=== PATIENT | male | born 1955 | race African-American/Black ===

== ENCOUNTER → 2018-11-01 | Day surgery (SDC) | payer MEDICARE, MEDICAID ==
[2018-10-28 10:59] LABS: Urine WBC None Seen /hpf (0 - 3)
[2018-10-28 11:41] LABS: Eosinophils # (auto) 0.1 uL; Hemoglobin 17.9 g/dL (13.5-17.5); Neutrophils # (auto) 2.1 uL; Platelet Count (auto) 197 10^3/uL (140-450); White Blood Cell 4.7 10^3/uL (4.4-10.8)
[2018-10-28 11:45] LABS: Basophils # (auto) 0.1 uL; Basophils % (auto) 1.8 % (0.0-2.0); Hematocrit 51.8 % (41.0-53.0); Lymphocytes # (auto) 1.9 uL; Lymphocytes % (auto) 39.7 % (10.0-50.0); Mean Corpuscular Hgb Conc. 34.6 g/dL (32.0-36.0); Mean Corpuscular Volume 104.2 fL (80.0-100.0); Monocytes # (auto) 0.6 uL; Neutrophils % (auto) 43.5 % (37.0-80.0); Nucleated Red Blood Cells % 0.1 %; Red Blood Cells 4.97 10^6/uL (4.5-5.90); Red Cell Distribution Width 13.5 % (11.8-14.3)
[2018-10-28 11:48] LABS: Urine Bacteria NONE SEEN /hpf (None Seen); Urine Blood Negative /uL (Negative); Urine Mucus FEW (None Seen); Urine Specific Gravity 1.026 (1.001-1.035); Urine Sperm PRESENT /hpf (None Seen)
[2018-10-28 11:52] LABS: Partial Thromboplastin Time 25.4 sec (23.78-33.04); Prothrombin Time 10.7 sec (9.27-12.13)
[2018-10-28 12:11] LABS: Albumin 3.7 g/dL (3.4-5.0); Calcium 9.1 mg/dL (8.5-10.1); Potassium 4.3 mmol/L (3.5-5.1)
[2018-10-28 12:14] LABS: BUN/Creatinine Ratio 10.4; Bilirubin, Total 0.7 mg/dL (0.2-1.0); Total Protein 9.1 g/dL (6.4-8.2)
[~2018-11-01] VITALS: Ht 180.3 cm; Wt 78.5 kg
[~2018-11-01] MED LIST: AML5T PO; ELVI1TAB4 PO; ESOM20CA PO; FAM20T PO; GLIP5TAB77 PO; LIDOCAINE 1% (LOCAL ANESTH.) PF 5ml SDV ONE; LIDOCAINE 1% HCL (LOCAL ANESTH.) INJ 20ML MDV ONE; METF500T PO; MIDAZOLAM HCL 1MG/1ML-2 ML VIAL ONE; ONDANSETRON HCL 4 MG/2 ML VIAL IV ONE; PROPOFOL 10 MG/ML 20 ML IV ONE; ceFAZolin 1GM/50ML 50 ML IV ONE; ePHEDrine SULFATE 50 MG/ML AMP IV PRN; fentaNYL CITRATE 100 MCG/2 ML VL IV ONE; fentaNYL CITRATE 100 MCG/2 ML VL ONE; hydrALAZINE HCL 20 MG/ML VL IV PRN
[2018-11-01 08:56] VITALS: BP 135/83
== END | disposition home or self-care (01) ==
LOC: SUR 05:54
PROVIDERS: ATTEND Orthopaedic Surgery
DX: S83.241A Other tear of medial meniscus, current injury, right knee, initial encounter (principal); M67.51 Plica syndrome, right knee; X58.XXXA Exposure to other specified factors, initial encounter; Y93.89 Activity, other specified; Y92.89 Other specified places as the place of occurrence of the external cause; Y99.8 Other external cause status; I10 Essential (primary) hypertension; K21.9 Gastro-esophageal reflux disease without esophagitis; E11.9 Type 2 diabetes mellitus without complications; B20 Human immunodeficiency virus [HIV] disease; Z79.84 Long term (current) use of oral hypoglycemic drugs; Z88.5 Allergy status to narcotic agent; Z79.899 Other long term (current) drug therapy; Z93.3 Colostomy status; Z98.49 Cataract extraction status, unspecified eye; Z98.890 Other specified postprocedural states; Z87.891 Personal history of nicotine dependence
CPT/HCPCS: 29876; 29881; 36415; 80053; 81001; 82962; 85025; 85610; 85730; J0690; J2001; J2250; J2704; J3010; A6257

== ENCOUNTER 2020-06-29 11:31 | Inpatient (IN) | payer MEDICARE, MEDICAID ==
[~2020-06-29] VITALS: Ht 180.3 cm; Wt 83.6 kg
[~2020-06-29 11:31] MED LIST changes: -ELVI1TAB4 PO; +ELVI1TAB5 PO; -FAM20T PO; +FAMO20TA10 PO; -LIDOCAINE 1% (LOCAL ANESTH.) PF 5ml SDV ONE; -LIDOCAINE 1% HCL (LOCAL ANESTH.) INJ 20ML MDV ONE; -MIDAZOLAM HCL 1MG/1ML-2 ML VIAL ONE; -ONDANSETRON HCL 4 MG/2 ML VIAL IV ONE; -PROPOFOL 10 MG/ML 20 ML IV ONE; -ceFAZolin 1GM/50ML 50 ML IV ONE; -ePHEDrine SULFATE 50 MG/ML AMP IV PRN; -fentaNYL CITRATE 100 MCG/2 ML VL IV ONE; -fentaNYL CITRATE 100 MCG/2 ML VL ONE; -hydrALAZINE HCL 20 MG/ML VL IV PRN
[2020-06-29 12:41] LABS: Basophils # (auto) 0 10 ^3/uL (0-0.2); Basophils % (auto) 0.2 % (0.0-2.0); Eosinophils # (auto) 0 10 ^3/uL (0-0.8); Hematocrit 42.2 % (41.0-53.0); Lymphocytes # (auto) 0.6 10 ^3/uL (0.4-5.4); Lymphocytes % (auto) 5.4 % (10.0-50.0); Mean Corpuscular Hemoglobin 37.5 pg (28.0-32.0); Mean Corpuscular Hgb Conc. 35.5 g/dL (32.0-36.0); Mean Corpuscular Volume 105.4 fL (80.0-100.0); Monocytes # (auto) 0.9 10 ^3/uL (0-1.3); Monocytes % (auto) 8.4 % (0.0-12.0); Neutrophils # (auto) 8.8 10 ^3/uL (1.6-8.6); Nucleated Red Blood Cells % 0.1 %; Red Cell Distribution Width 12.5 % (11.8-14.3); White Blood Cell 10.2 10^3/uL (4.4-10.8)
[2020-06-29] MEDS ORDERED: DexAMETHasone SOD PHOS 10MG/1ML VIAL INJ IV ONE (12:45)
[2020-06-29] MEDS ORDERED: AZITHROMYCIN 500MG/ 250ML 250 ML IV ONE (12:45)
[2020-06-29 13:09] LABS: Chloride 92 mmol/L (98-107); Potassium 3.8 mmol/L (3.5-5.1); Sodium 127 mmol/L (136-145)
[2020-06-29 13:14] LABS: Lactic Acid w/Reflex 4.7 mmol/L (0.4-2.0)
[2020-06-29 13:19] LABS: Alanine Aminotransferase 105 U/L (16-61); Albumin 2.7 g/dL (3.4-5.0); Alkaline Phosphatase 192 U/L (45-117); Anion Gap 17 (5-15); Aspartate Aminotransferase 225 U/L (15-37); BUN/Creatinine Ratio 10.2; Bilirubin, Total 2.5 mg/dL (0.2-1.0); Blood Urea Nitrogen 14 mg/dL (7-18); Calcium 9.1 mg/dL (8.5-10.1); Carbon Dioxide 18 mmol/L (21-32); GFR African American 67 mL/min; GFR Non-African American 55 mL/min; Glucose 347 mg/dL (74-106)
[2020-06-29 13:48] LABS: INR 1.13 (0.9-1.15)
[2020-06-29] MEDS ORDERED: DEXTROSE (50%) 50ML SYRG IV PRN ×2 (16:00→18:00)
[2020-06-29] MEDS ORDERED: InsuLIN R (HUMAN) 100 UNITS in SODIUM CHL 0.9% 99 ML IV SCH (16:00)
[2020-06-29] MEDS ORDERED: ACCU-CHEK COMFORT CURVE STRIP VI SCH ×2 (16:30→22:00)
[2020-06-29] MEDS: SODIUM CHLORIDE 0.9% 1,000 ML IV SCH ×3 (16:38→21:55)
[2020-06-29] MEDS ORDERED: NITROGLYCERIN 0.4 MG SL TAB SL PRN (17:15)
[2020-06-29] MEDS ORDERED: MORPHINE SULFATE INJECTION 2 MG/ML SYRG IV PRN ×3 (17:15→18:00)
[2020-06-29] MEDS: MAGNESIUM SULFATE 1GM/100ML 100 ML IV SCH ×3 (17:46→18:32)
[2020-06-29] MEDS ORDERED: levoFLOXacin 500MG 100 ML IV ONE (18:00)
[2020-06-29] MEDS ORDERED: PROMETHAZINE HCL 25 MG/ML 1ML IV PRN (18:00)
[2020-06-29] MEDS ORDERED: TEMAZEPAM 15 MG CAP PO PRN (18:00)
[2020-06-29] MEDS ORDERED: PANTOPRAZOLE 40 MG/10 ML VIAL INJ IV ONE (18:00)
[2020-06-29] MEDS ORDERED: REMDESIVIR PER PHARMACY 0 ML IV SCH (18:15)
[2020-06-29 19:22] LABS: Hemoglobin 14.2 g/dL (13.5-17.5)
[2020-06-29 19:24] LABS: Hematocrit 40.5 % (41.0-53.0)
[2020-06-29 19:25] LABS: Amylase 130 U/L (25-115); Lipase 188 U/L (73-393)
[2020-06-29 19:39] LABS: CRP High Sensitivity > 19.0 mg/dL (< 0.3)
[2020-06-29 19:43] LABS: Calcium 9.1 mg/dL (8.5-10.1); Potassium 3.9 mmol/L (3.5-5.1)
[2020-06-29 19:45] LABS: BUN/Creatinine Ratio 13.5
[2020-06-29] MEDS ORDERED: SODIUM CHLORIDE 0.9% 1,000 ML IV SCH ×2 (20:00→22:00)
[2020-06-29] MEDS: INSULIN LANTUS (GLARGINE) 1 /0.01ml (100units/ml) SC SCH (20:39)
[2020-06-29] MEDS: ACCU-CHEK COMFORT CURVE STRIP VI SCH ×2 (20:39→23:53)
[2020-06-29] MEDS: InsuLIN REG 1unit/0.01ml Soln (100units/ml) SC SCH ×2 (20:40→23:53)
[2020-06-29] MEDS ORDERED: InsuLIN REG 1unit/0.01ml Soln (100units/ml) SC SCH (22:00)
[2020-06-29] MEDS: metroNIDAZOLE 500MG/100ML 100 ML IV SCH (22:00)
[2020-06-29] MEDS: BUDESONIDE (INHALATION) 180 MCG IH IN SCH (22:40)
[2020-06-29] MEDS: ALBUTEROL SULF HFA 90MCG INH 200DOSE IN PRN (22:41)
[2020-06-29 23:06] LABS: BUN/Creatinine Ratio 15.2; Calcium 8.7 mg/dL (8.5-10.1)
[2020-06-30] MEDS: SODIUM CHLORIDE 0.9% 1,000 ML IV SCH ×3 (02:10→18:06)
[2020-06-30 03:59] LABS: Hematocrit 36.9 % (41.0-53.0); Hemoglobin 12.8 g/dL (13.5-17.5)
[2020-06-30] MEDS: ACCU-CHEK COMFORT CURVE STRIP VI SCH ×5 (04:13→20:17)
[2020-06-30] MEDS: InsuLIN REG 1unit/0.01ml Soln (100units/ml) SC SCH ×5 (04:13→20:24)
[2020-06-30] MEDS: metroNIDAZOLE 500MG/100ML 100 ML IV SCH ×3 (05:33→23:06)
[2020-06-30 06:27] LABS: Basophils # (auto) 0 10 ^3/uL (0-0.2); Eosinophils # (auto) 0 10 ^3/uL (0-0.8); Lymphocytes # (auto) 0.8 10 ^3/uL (0.4-5.4); Monocytes # (auto) 0.8 10 ^3/uL (0-1.3); Neutrophils # (auto) 9.5 10 ^3/uL (1.6-8.6); Red Cell Distribution Width 12.3 % (11.8-14.3); White Blood Cell 11.1 10^3/uL (4.4-10.8)
[2020-06-30 06:29] LABS: Basophils % (auto) 0.1 % (0.0-2.0); Hematocrit 35.8 % (41.0-53.0); Hemoglobin 12.5 g/dL (13.5-17.5); Lymphocytes % (auto) 7.1 % (10.0-50.0); Mean Corpuscular Hemoglobin 36.8 pg (28.0-32.0); Mean Corpuscular Volume 105.1 fL (80.0-100.0); Monocytes % (auto) 7.5 % (0.0-12.0); Neutrophils % (auto) 85.3 % (37.0-80.0); Red Blood Cells 3.41 10^6/uL (4.5-5.90)
[2020-06-30 06:39] LABS: Albumin 2.1 g/dL (3.4-5.0); BUN/Creatinine Ratio 19.2; Calcium 8.4 mg/dL (8.5-10.1); Potassium 3.9 mmol/L (3.5-5.1)
[2020-06-30 06:41] LABS: Bilirubin, Total 1.2 mg/dL (0.2-1.0); Total Protein 7.3 g/dL (6.4-8.2)
[2020-06-30] MEDS: BUDESONIDE (INHALATION) 180 MCG IH IN SCH ×2 (09:27→19:35)
[2020-06-30] MEDS: ALBUTEROL SULF HFA 90MCG INH 200DOSE IN PRN ×2 (09:27→21:16)
[2020-06-30] MEDS ORDERED: VANCOMYCIN PER PHARMACY 0 MG IV SCH (11:15)
[2020-06-30] MEDS: INSULIN LANTUS (GLARGINE) 1 /0.01ml (100units/ml) SC SCH ×2 (12:00→23:41)
[2020-06-30] MEDS: CHOLECALCIFEROL (VITD3) 2,000 UNIT CAP/TAB PO SCH (12:00)
[2020-06-30] MEDS: DexAMETHasone SOD PHOS 10MG/1ML VIAL INJ IV SCH (12:00)
[2020-06-30] MEDS: levoFLOXacin 500MG 100 ML IV SCH (12:00)
[2020-06-30] MEDS: ZINC SULFATE 220mg CAP or TAB PO SCH (12:00)
[2020-06-30] MEDS: ASCORBIC ACID 1,000 MG TAB PO SCH (12:00)
[2020-06-30] MEDS: PANTOPRAZOLE 40 MG TAB PO SCH ×2 (12:00→23:06)
[2020-06-30] MEDS ORDERED: REMDESIVIR 200 MG in NS 210ml LOADING DOSE ADULT IV ONE (15:00)
[2020-06-30] MEDS: VANCOMYCIN 1GM/250ML 250 ML IV SCH (16:35)
[2020-06-30] MEDS: SUCRALFATE 1 GM/10 ML ORAL SUSP PO SCH ×2 (18:07→23:06)
[2020-07-01] MEDS: ACCU-CHEK COMFORT CURVE STRIP VI SCH ×6 (00:40→20:03)
[2020-07-01] MEDS: InsuLIN REG 1unit/0.01ml Soln (100units/ml) SC SCH ×6 (00:44→20:07)
[2020-07-01] MEDS: VANCOMYCIN 1GM/250ML 250 ML IV SCH ×2 (01:02→12:12)
[2020-07-01] MEDS: SODIUM CHLORIDE 0.9% 1,000 ML IV SCH ×2 (02:00→08:05)
[2020-07-01] MEDS: metroNIDAZOLE 500MG/100ML 100 ML IV SCH ×3 (06:06→21:23)
[2020-07-01 06:54] LABS: Urine Bacteria FEW /hpf (None Seen); Urine Blood Negative /uL (Negative); Urine Hyaline Cast FEW /lpf (0 - 2); Urine Mucus FEW (None Seen); Urine Specific Gravity 1.017 (1.001-1.035); Urine WBC 10 /hpf (0 - 3)
[2020-07-01] MEDS: SUCRALFATE 1 GM/10 ML ORAL SUSP PO SCH ×4 (07:00→21:02)
[2020-07-01 07:15] LABS: Basophils # (auto) 0 10 ^3/uL (0-0.2); Eosinophils # (auto) 0 10 ^3/uL (0-0.8); Hematocrit 37.8 % (41.0-53.0); Monocytes # (auto) 0.5 10 ^3/uL (0-1.3); Neutrophils % (auto) 89.4 % (37.0-80.0); Nucleated Red Blood Cells % 0.1 %; Red Cell Distribution Width 12.4 % (11.8-14.3)
[2020-07-01 07:19] LABS: Basophils % (auto) 0.1 % (0.0-2.0); Hemoglobin 13.3 g/dL (13.5-17.5); Lymphocytes # (auto) 0.4 10 ^3/uL (0.4-5.4); Mean Corpuscular Hemoglobin 36.6 pg (28.0-32.0); Mean Corpuscular Hgb Conc. 35.2 g/dL (32.0-36.0); Monocytes % (auto) 5.5 % (0.0-12.0); Neutrophils # (auto) 7.9 10 ^3/uL (1.6-8.6); Red Blood Cells 3.64 10^6/uL (4.5-5.90); White Blood Cell 8.9 10^3/uL (4.4-10.8)
[2020-07-01 07:40] LABS: Potassium 3.1 mmol/L (3.5-5.1)
[2020-07-01 07:50] LABS: BUN/Creatinine Ratio 14.6; Calcium 8.8 mg/dL (8.5-10.1)
[2020-07-01 07:53] LABS: Bilirubin, Total 1.3 mg/dL (0.2-1.0); Total Protein 7.2 g/dL (6.4-8.2)
[2020-07-01] MEDS: ASCORBIC ACID 1,000 MG TAB PO SCH (08:05)
[2020-07-01] MEDS: ZINC SULFATE 220mg CAP or TAB PO SCH (08:05)
[2020-07-01] MEDS: levoFLOXacin 500MG 100 ML IV SCH (08:05)
[2020-07-01] MEDS: PANTOPRAZOLE 40 MG TAB PO SCH ×2 (08:05→21:02)
[2020-07-01] MEDS: DexAMETHasone SOD PHOS 10MG/1ML VIAL INJ IV SCH (08:05)
[2020-07-01] MEDS: CHOLECALCIFEROL (VITD3) 2,000 UNIT CAP/TAB PO SCH (08:06)
[2020-07-01] MEDS: INSULIN LANTUS (GLARGINE) 1 /0.01ml (100units/ml) SC SCH ×2 (10:00→21:03)
[2020-07-01] MEDS ORDERED: POTASSIUM CHL 20MEQ/100ML 100 ML IV ONE (13:30)
[2020-07-01 18:55] VITALS: BP 104/69
[2020-07-01] MEDS: HYDROcodone-ACET 10/325MG TAB PO PRN (20:56)
[2020-07-01] MEDS: REMDESIVIR 100 MG in SODIUM CHL 0.9% 250 ML IV SCH (21:22)
[2020-07-01 23:27] VITALS: BP 107/71
[2020-07-02] MEDS: VANCOMYCIN 1GM/250ML 250 ML IV SCH ×2 (00:40→13:22)
[2020-07-02 02:35] VITALS: BP 113/70
[2020-07-02] MEDS: metroNIDAZOLE 500MG/100ML 100 ML IV SCH ×3 (05:15→22:03)
[2020-07-02] MEDS: ACCU-CHEK COMFORT CURVE STRIP VI SCH ×4 (05:15→17:58)
[2020-07-02] MEDS: SUCRALFATE 1 GM/10 ML ORAL SUSP PO SCH ×4 (05:35→22:03)
[2020-07-02] MEDS: InsuLIN REG 1unit/0.01ml Soln (100units/ml) SC SCH ×4 (05:48→18:07)
[2020-07-02 06:33] LABS: Basophils # (auto) 0 10 ^3/uL (0-0.2); Basophils % (auto) 0.2 % (0.0-2.0); Eosinophils # (auto) 0 10 ^3/uL (0-0.8); Lymphocytes # (auto) 0.4 10 ^3/uL (0.4-5.4); Nucleated Red Blood Cells % 0.1 %; Red Blood Cells 3.42 10^6/uL (4.5-5.90); Red Cell Distribution Width 12.3 % (11.8-14.3)
[2020-07-02 06:36] LABS: Hemoglobin 12.6 g/dL (13.5-17.5); Lymphocytes % (auto) 4.7 % (10.0-50.0); Mean Corpuscular Hemoglobin 36.9 pg (28.0-32.0); Mean Corpuscular Hgb Conc. 35.1 g/dL (32.0-36.0); Monocytes # (auto) 0.5 10 ^3/uL (0-1.3); Monocytes % (auto) 6.9 % (0.0-12.0); Neutrophils % (auto) 88.2 % (37.0-80.0)
[2020-07-02 07:07] LABS: Calcium 8.5 mg/dL (8.5-10.1); Potassium 3.2 mmol/L (3.5-5.1)
[2020-07-02 07:13] LABS: Albumin 1.8 g/dL (3.4-5.0); BUN/Creatinine Ratio 20.5; Total Protein 6.8 g/dL (6.4-8.2)
[2020-07-02] MEDS: BUDESONIDE (INHALATION) 180 MCG IH IN SCH ×4 (07:24→18:22)
[2020-07-02 08:00] VITALS: BP 109/66
[2020-07-02] MEDS: ALBUTEROL SULF HFA 90MCG INH 200DOSE IN PRN ×2 (08:00→18:23)
[2020-07-02] MEDS: ASCORBIC ACID 1,000 MG TAB PO SCH (10:00)
[2020-07-02] MEDS: INSULIN LANTUS (GLARGINE) 1 /0.01ml (100units/ml) SC SCH ×2 (10:00→22:22)
[2020-07-02] MEDS: levoFLOXacin 500MG 100 ML IV SCH (10:00)
[2020-07-02] MEDS: PANTOPRAZOLE 40 MG TAB PO SCH ×2 (10:00→22:00)
[2020-07-02] MEDS: ZINC SULFATE 220mg CAP or TAB PO SCH (10:00)
[2020-07-02] MEDS: CHOLECALCIFEROL (VITD3) 2,000 UNIT CAP/TAB PO SCH (10:00)
[2020-07-02] MEDS: DexAMETHasone SOD PHOS 10MG/1ML VIAL INJ IV SCH (10:00)
[2020-07-02] MEDS: HYDROcodone-ACET 10/325MG TAB PO PRN ×2 (12:30→20:00)
[2020-07-02] MEDS ORDERED: POTASSIUM EFFERVESENT TAB 25 MEQ PO ONE (13:00)
[2020-07-02 15:40] VITALS: BP 131/74
[2020-07-02] MEDS: REMDESIVIR 100 MG in SODIUM CHL 0.9% 250 ML IV SCH (17:57)
[2020-07-02 18:14] VITALS: BP 132/77
[2020-07-03] VITALS: BP 105/64
[2020-07-03] MEDS: InsuLIN REG 1unit/0.01ml Soln (100units/ml) SC SCH ×4 (00:42→17:44)
[2020-07-03] MEDS: VANCOMYCIN 1GM/250ML 250 ML IV SCH ×2 (00:46→14:44)
[2020-07-03] MEDS: metroNIDAZOLE 500MG/100ML 100 ML IV SCH (05:58)
[2020-07-03] MEDS: ACCU-CHEK COMFORT CURVE STRIP VI SCH ×4 (05:58→17:43)
[2020-07-03] MEDS: SUCRALFATE 1 GM/10 ML ORAL SUSP PO SCH ×4 (06:03→22:34)
[2020-07-03] MEDS: BUDESONIDE (INHALATION) 180 MCG IH IN SCH ×2 (07:20→20:48)
[2020-07-03] MEDS: ALBUTEROL SULF HFA 90MCG INH 200DOSE IN PRN ×2 (07:20→20:49)
[2020-07-03 07:26] LABS: Basophils # (auto) 0 10 ^3/uL (0-0.2); Eosinophils # (auto) 0 10 ^3/uL (0-0.8); Lymphocytes # (auto) 0.4 10 ^3/uL (0.4-5.4); Mean Corpuscular Hgb Conc. 35.2 g/dL (32.0-36.0); Monocytes # (auto) 0.6 10 ^3/uL (0-1.3)
[2020-07-03 07:28] LABS: Basophils % (auto) 0.1 % (0.0-2.0); Eosinophils % (auto) 0.1 % (0.0-7.0); Hematocrit 35.6 % (41.0-53.0); Hemoglobin 12.5 g/dL (13.5-17.5); Lymphocytes % (auto) 4.9 % (10.0-50.0); Mean Corpuscular Hemoglobin 36.4 pg (28.0-32.0); Mean Corpuscular Volume 103.4 fL (80.0-100.0); Monocytes % (auto) 8.2 % (0.0-12.0); Neutrophils # (auto) 6.3 10 ^3/uL (1.6-8.6); Neutrophils % (auto) 86.7 % (37.0-80.0); Nucleated Red Blood Cells % 0.1 %; Red Blood Cells 3.44 10^6/uL (4.5-5.90); Red Cell Distribution Width 12.5 % (11.8-14.3); White Blood Cell 7.2 10^3/uL (4.4-10.8)
[2020-07-03 08:00] VITALS: BP 96/64
[2020-07-03 08:12] LABS: Albumin 1.8 g/dL (3.4-5.0); BUN/Creatinine Ratio 17.9; Calcium 8.2 mg/dL (8.5-10.1); Total Protein 6.8 g/dL (6.4-8.2)
[2020-07-03 08:18] LABS: Potassium 2.8 mmol/L (3.5-5.1)
[2020-07-03] MEDS ORDERED: POTASSIUM EFFERVESENT TAB 25 MEQ PO ONE ×2 (08:45→22:00)
[2020-07-03] MEDS: ELVITEGRAVIR COBICISTAT EMTRIC PO SCH (10:00)
[2020-07-03] MEDS: DexAMETHasone SOD PHOS 10MG/1ML VIAL INJ IV SCH (10:17)
[2020-07-03] MEDS: PANTOPRAZOLE 40 MG TAB PO SCH ×2 (10:18→22:35)
[2020-07-03] MEDS: ZINC SULFATE 220mg CAP or TAB PO SCH (10:18)
[2020-07-03] MEDS: levoFLOXacin 500MG 100 ML IV SCH (10:18)
[2020-07-03] MEDS: ASCORBIC ACID 1,000 MG TAB PO SCH (10:19)
[2020-07-03] MEDS: CHOLECALCIFEROL (VITD3) 2,000 UNIT CAP/TAB PO SCH (10:19)
[2020-07-03] MEDS: INSULIN LANTUS (GLARGINE) 1 /0.01ml (100units/ml) SC SCH ×2 (10:32→22:38)
[2020-07-03 16:00] VITALS: BP 104/72
[2020-07-03] MEDS: REMDESIVIR 100 MG in SODIUM CHL 0.9% 250 ML IV SCH (16:00)
[2020-07-03] MEDS: DOXYCYCLINE 100 MG TAB/CAP PO SCH (22:35)
[2020-07-04] VITALS: BP 98/50
[2020-07-04] MEDS: InsuLIN REG 1unit/0.01ml Soln (100units/ml) SC SCH ×4 (00:36→17:46)
[2020-07-04] MEDS: ALBUTEROL SULF HFA 90MCG INH 200DOSE IN PRN ×2 (06:24→20:57)
[2020-07-04] MEDS: BUDESONIDE (INHALATION) 180 MCG IH IN SCH ×2 (06:24→20:57)
[2020-07-04] MEDS: ACCU-CHEK COMFORT CURVE STRIP VI SCH ×4 (06:26→17:45)
[2020-07-04] MEDS: SUCRALFATE 1 GM/10 ML ORAL SUSP PO SCH ×4 (06:26→21:44)
[2020-07-04 08:00] VITALS: BP 108/65
[2020-07-04 08:09] LABS: Albumin 1.9 g/dL (3.4-5.0); BUN/Creatinine Ratio 20.3; Bilirubin, Total 1.1 mg/dL (0.2-1.0); Calcium 8.6 mg/dL (8.5-10.1)
[2020-07-04 08:29] LABS: Basophils # (auto) 0 10 ^3/uL (0-0.2); Basophils % (auto) 0.1 % (0.0-2.0); Eosinophils # (auto) 0 10 ^3/uL (0-0.8); Hematocrit 37.8 % (41.0-53.0); Hemoglobin 13.3 g/dL (13.5-17.5); Lymphocytes # (auto) 0.5 10 ^3/uL (0.4-5.4); Lymphocytes % (auto) 6.3 % (10.0-50.0); Mean Corpuscular Hemoglobin 36.2 pg (28.0-32.0); Mean Corpuscular Hgb Conc. 35.1 g/dL (32.0-36.0); Mean Corpuscular Volume 103.2 fL (80.0-100.0); Monocytes # (auto) 0.9 10 ^3/uL (0-1.3); Monocytes % (auto) 12.3 % (0.0-12.0); Neutrophils # (auto) 6.1 10 ^3/uL (1.6-8.6); Neutrophils % (auto) 81.3 % (37.0-80.0); Nucleated Red Blood Cells % 0.4 %; Red Blood Cells 3.67 10^6/uL (4.5-5.90); Red Cell Distribution Width 12.7 % (11.8-14.3); White Blood Cell 7.4 10^3/uL (4.4-10.8)
[2020-07-04] MEDS: CHOLECALCIFEROL (VITD3) 2,000 UNIT CAP/TAB PO SCH (09:52)
[2020-07-04] MEDS: ZINC SULFATE 220mg CAP or TAB PO SCH (09:52)
[2020-07-04] MEDS: DOXYCYCLINE 100 MG TAB/CAP PO SCH ×3 (09:52→23:12)
[2020-07-04] MEDS: ASCORBIC ACID 1,000 MG TAB PO SCH (09:52)
[2020-07-04] MEDS: DexAMETHasone SOD PHOS 10MG/1ML VIAL INJ IV SCH (09:52)
[2020-07-04] MEDS: PANTOPRAZOLE 40 MG TAB PO SCH ×2 (09:52→21:45)
[2020-07-04] MEDS: cefTRIAXone 1GM/50ML D5W 50 ML IV SCH (09:52)
[2020-07-04] MEDS: ELVITEGRAVIR COBICISTAT EMTRIC PO SCH (10:00)
[2020-07-04] MEDS: INSULIN LANTUS (GLARGINE) 1 /0.01ml (100units/ml) SC SCH ×2 (10:51→21:52)
[2020-07-04 16:00] VITALS: BP 106/58
[2020-07-04] MEDS: REMDESIVIR 100 MG in SODIUM CHL 0.9% 250 ML IV SCH (16:22)
[2020-07-04] MEDS ORDERED: POTASSIUM EFFERVESENT TAB 25 MEQ PO ONE (20:30)
[2020-07-04] MEDS ORDERED: POTASSIUM CHL 20 Meq TABLET PO ONE (20:30)
[2020-07-04] MEDS ORDERED: FUROSEMIDE 40 MG/4 ML VIAL IV ONE (20:30)
[2020-07-04] MEDS ORDERED: ENOXAPARIN SOD 40 MG/0.4 ML SYRINGE SC ONE (20:30)
[2020-07-04] MEDS: HYDROcodone-ACET 10/325MG TAB PO PRN (21:45)
[2020-07-04] MEDS: metroNIDAZOLE 500MG/100ML 100 ML IV SCH (23:12)
[2020-07-05] VITALS: BP 110/72
[2020-07-05] MEDS: ACCU-CHEK COMFORT CURVE STRIP VI SCH ×5 (00:16→23:41)
[2020-07-05] MEDS: metroNIDAZOLE 500MG/100ML 100 ML IV SCH ×3 (05:50→21:38)
[2020-07-05] MEDS: InsuLIN REG 1unit/0.01ml Soln (100units/ml) SC SCH ×5 (06:00→23:47)
[2020-07-05] MEDS: SUCRALFATE 1 GM/10 ML ORAL SUSP PO SCH ×4 (06:48→21:38)
[2020-07-05] MEDS: BUDESONIDE (INHALATION) 180 MCG IH IN SCH ×2 (07:00→19:57)
[2020-07-05] MEDS: ALBUTEROL SULF HFA 90MCG INH 200DOSE IN PRN ×2 (07:00→19:57)
[2020-07-05 08:00] VITALS: BP 104/74
[2020-07-05] MEDS: POTASSIUM EFFERVESENT TAB 25 MEQ PO SCH (08:38)
[2020-07-05] MEDS: PANTOPRAZOLE 40 MG TAB PO SCH ×2 (08:39→21:39)
[2020-07-05] MEDS: DexAMETHasone SOD PHOS 10MG/1ML VIAL INJ IV SCH (08:39)
[2020-07-05] MEDS: DOXYCYCLINE 100 MG TAB/CAP PO SCH ×2 (08:39→21:39)
[2020-07-05] MEDS: ZINC SULFATE 220mg CAP or TAB PO SCH (08:39)
[2020-07-05] MEDS: CHOLECALCIFEROL (VITD3) 2,000 UNIT CAP/TAB PO SCH (08:39)
[2020-07-05] MEDS: ASCORBIC ACID 1,000 MG TAB PO SCH (08:39)
[2020-07-05] MEDS: cefTRIAXone 1GM/50ML D5W 50 ML IV SCH (08:40)
[2020-07-05] MEDS: ENOXAPARIN SOD 40 MG/0.4 ML SYRINGE SC SCH (08:40)
[2020-07-05] MEDS: ELVITEGRAVIR COBICISTAT EMTRIC PO SCH (08:41)
[2020-07-05 10:48] LABS: Basophils # (auto) 0 10 ^3/uL (0-0.2); Basophils % (auto) 0.1 % (0.0-2.0); Eosinophils # (auto) 0 10 ^3/uL (0-0.8); Eosinophils % (auto) 0.4 % (0.0-7.0); Monocytes # (auto) 0.5 10 ^3/uL (0-1.3)
[2020-07-05 10:50] LABS: Hematocrit 38.4 % (41.0-53.0); Hemoglobin 13.4 g/dL (13.5-17.5); Lymphocytes # (auto) 0.3 10 ^3/uL (0.4-5.4); Lymphocytes % (auto) 4.2 % (10.0-50.0); Mean Corpuscular Hemoglobin 36.3 pg (28.0-32.0); Mean Corpuscular Hgb Conc. 34.8 g/dL (32.0-36.0); Mean Corpuscular Volume 104.4 fL (80.0-100.0); Monocytes % (auto) 7.7 % (0.0-12.0); Neutrophils # (auto) 5.8 10 ^3/uL (1.6-8.6); Neutrophils % (auto) 87.6 % (37.0-80.0); Red Blood Cells 3.68 10^6/uL (4.5-5.90); Red Cell Distribution Width 12.8 % (11.8-14.3); White Blood Cell 6.6 10^3/uL (4.4-10.8)
[2020-07-05 10:53] LABS: Nucleated Red Blood Cells % 0.3 %
[2020-07-05] MEDS ORDERED: LOPERAMIDE 1 mg/7.5ml ORAL soln PO ONE (11:15)
[2020-07-05] MEDS: INSULIN LANTUS (GLARGINE) 1 /0.01ml (100units/ml) SC SCH ×2 (13:05→21:41)
[2020-07-05] MEDS: FUROSEMIDE 40 MG/4 ML VIAL IV SCH (13:08)
[2020-07-05 16:00] VITALS: BP 96/60
[2020-07-06] VITALS: BP 99/63
[2020-07-06] MEDS: metroNIDAZOLE 500MG/100ML 100 ML IV SCH ×3 (05:53→22:04)
[2020-07-06] MEDS: InsuLIN REG 1unit/0.01ml Soln (100units/ml) SC SCH ×4 (06:00→23:14)
[2020-07-06] MEDS: ACCU-CHEK COMFORT CURVE STRIP VI SCH ×4 (06:07→22:55)
[2020-07-06] MEDS: SUCRALFATE 1 GM/10 ML ORAL SUSP PO SCH ×4 (06:29→22:04)
[2020-07-06 07:50] LABS: Basophils # (auto) 0 10 ^3/uL (0-0.2); Eosinophils # (auto) 0 10 ^3/uL (0-0.8); Hemoglobin 12.6 g/dL (13.5-17.5); Lymphocytes # (auto) 0.5 10 ^3/uL (0.4-5.4); Monocytes # (auto) 0.6 10 ^3/uL (0-1.3); Neutrophils # (auto) 5.2 10 ^3/uL (1.6-8.6); Nucleated Red Blood Cells % 0.2 %
[2020-07-06 07:53] LABS: Basophils % (auto) 0.2 % (0.0-2.0); Eosinophils % (auto) 0.3 % (0.0-7.0); Hematocrit 36.4 % (41.0-53.0); Lymphocytes % (auto) 8.6 % (10.0-50.0); Mean Corpuscular Hemoglobin 36.3 pg (28.0-32.0); Mean Corpuscular Hgb Conc. 34.6 g/dL (32.0-36.0); Mean Corpuscular Volume 104.9 fL (80.0-100.0); Monocytes % (auto) 9.5 % (0.0-12.0); Neutrophils % (auto) 81.4 % (37.0-80.0); Red Blood Cells 3.47 10^6/uL (4.5-5.90); Red Cell Distribution Width 12.8 % (11.8-14.3); White Blood Cell 6.3 10^3/uL (4.4-10.8)
[2020-07-06 08:00] VITALS: BP 112/71
[2020-07-06] MEDS: ENOXAPARIN SOD 40 MG/0.4 ML SYRINGE SC SCH (09:39)
[2020-07-06] MEDS: cefTRIAXone 1GM/50ML D5W 50 ML IV SCH (09:39)
[2020-07-06] MEDS: POTASSIUM EFFERVESENT TAB 25 MEQ PO SCH (09:39)
[2020-07-06] MEDS: ZINC SULFATE 220mg CAP or TAB PO SCH (09:41)
[2020-07-06] MEDS: ASCORBIC ACID 1,000 MG TAB PO SCH (09:41)
[2020-07-06] MEDS: FUROSEMIDE 40 MG/4 ML VIAL IV SCH (09:41)
[2020-07-06] MEDS: DexAMETHasone SOD PHOS 10MG/1ML VIAL INJ IV SCH (09:41)
[2020-07-06] MEDS: PANTOPRAZOLE 40 MG TAB PO SCH ×2 (09:43→22:05)
[2020-07-06] MEDS: CHOLECALCIFEROL (VITD3) 2,000 UNIT CAP/TAB PO SCH (09:43)
[2020-07-06] MEDS: DOXYCYCLINE 100 MG TAB/CAP PO SCH ×2 (09:43→22:05)
[2020-07-06] MEDS: INSULIN LANTUS (GLARGINE) 1 /0.01ml (100units/ml) SC SCH ×2 (09:58→23:13)
[2020-07-06] MEDS: ELVITEGRAVIR COBICISTAT EMTRIC PO SCH ×2 (09:58→22:04)
[2020-07-06] MEDS: BUDESONIDE (INHALATION) 180 MCG IH IN SCH ×2 (10:00→19:30)
[2020-07-06 16:00] VITALS: BP 91/59
[2020-07-06] MEDS: ALBUTEROL SULF HFA 90MCG INH 200DOSE IN PRN (19:30)
[2020-07-07] VITALS: BP 94/44
[2020-07-07] MEDS: metroNIDAZOLE 500MG/100ML 100 ML IV SCH ×3 (05:33→22:13)
[2020-07-07] MEDS: ACCU-CHEK COMFORT CURVE STRIP VI SCH ×4 (05:45→23:46)
[2020-07-07] MEDS: SUCRALFATE 1 GM/10 ML ORAL SUSP PO SCH ×4 (05:46→22:13)
[2020-07-07] MEDS: InsuLIN REG 1unit/0.01ml Soln (100units/ml) SC SCH ×4 (06:11→23:52)
[2020-07-07 06:36] VITALS: BP 94/56
[2020-07-07] MEDS: ALBUTEROL SULF HFA 90MCG INH 200DOSE IN PRN ×2 (07:00→20:15)
[2020-07-07] MEDS: BUDESONIDE (INHALATION) 180 MCG IH IN SCH ×2 (07:00→20:15)
[2020-07-07 07:01] VITALS: BP 103/63
[2020-07-07 08:00] VITALS: BP 103/63
[2020-07-07 08:43] VITALS: BP 104/55
[2020-07-07] MEDS: POTASSIUM EFFERVESENT TAB 25 MEQ PO SCH (09:20)
[2020-07-07] MEDS: ZINC SULFATE 220mg CAP or TAB PO SCH (09:21)
[2020-07-07] MEDS: ASCORBIC ACID 1,000 MG TAB PO SCH (09:21)
[2020-07-07] MEDS: PANTOPRAZOLE 40 MG TAB PO SCH ×2 (09:21→22:13)
[2020-07-07] MEDS: ENOXAPARIN SOD 40 MG/0.4 ML SYRINGE SC SCH (09:21)
[2020-07-07] MEDS: FUROSEMIDE 40 MG/4 ML VIAL IV SCH (09:22)
[2020-07-07] MEDS: cefTRIAXone 1GM/50ML D5W 50 ML IV SCH (09:22)
[2020-07-07] MEDS: DexAMETHasone SOD PHOS 10MG/1ML VIAL INJ IV SCH (09:22)
[2020-07-07] MEDS: CHOLECALCIFEROL (VITD3) 2,000 UNIT CAP/TAB PO SCH (09:22)
[2020-07-07] MEDS: DOXYCYCLINE 100 MG TAB/CAP PO SCH ×2 (09:22→22:13)
[2020-07-07] MEDS: ELVITEGRAVIR COBICISTAT EMTRIC PO SCH ×2 (09:23→22:13)
[2020-07-07] MEDS: INSULIN LANTUS (GLARGINE) 1 /0.01ml (100units/ml) SC SCH ×2 (09:37→23:51)
[2020-07-07 14:46] LABS: Eosinophils # (auto) 0 10 ^3/uL (0-0.8); Monocytes # (auto) 0.4 10 ^3/uL (0-1.3); White Blood Cell 9.4 10^3/uL (4.4-10.8)
[2020-07-07 14:47] LABS: Basophils # (auto) 0 10 ^3/uL (0-0.2); Basophils % (auto) 0.1 % (0.0-2.0); Hematocrit 35.4 % (41.0-53.0); Hemoglobin 12.2 g/dL (13.5-17.5); Lymphocytes # (auto) 0.1 10 ^3/uL (0.4-5.4); Lymphocytes % (auto) 1.3 % (10.0-50.0); Mean Corpuscular Hemoglobin 36.7 pg (28.0-32.0); Mean Corpuscular Hgb Conc. 34.5 g/dL (32.0-36.0); Mean Corpuscular Volume 106.3 fL (80.0-100.0); Monocytes % (auto) 4.5 % (0.0-12.0); Neutrophils # (auto) 8.9 10 ^3/uL (1.6-8.6); Neutrophils % (auto) 94.1 % (37.0-80.0); Nucleated Red Blood Cells % 0.1 %; Red Blood Cells 3.33 10^6/uL (4.5-5.90); Red Cell Distribution Width 12.8 % (11.8-14.3)
[2020-07-07 16:11] LABS: Potassium 3.7 mmol/L (3.5-5.1)
[2020-07-07 16:13] VITALS: BP 102/79
[2020-07-07 16:39] LABS: BUN/Creatinine Ratio 16.8; CRP High Sensitivity 4.67 mg/dL (< 0.3)
[2020-07-08] VITALS: BP 117/69
[2020-07-08] MEDS: InsuLIN REG 1unit/0.01ml Soln (100units/ml) SC SCH ×3 (06:00→17:41)
[2020-07-08] MEDS: ACCU-CHEK COMFORT CURVE STRIP VI SCH ×3 (06:48→17:38)
[2020-07-08] MEDS: metroNIDAZOLE 500MG/100ML 100 ML IV SCH ×3 (06:48→21:36)
[2020-07-08] MEDS: SUCRALFATE 1 GM/10 ML ORAL SUSP PO SCH ×4 (06:48→21:36)
[2020-07-08 08:00] VITALS: BP 116/76
[2020-07-08] MEDS: cefTRIAXone 1GM/50ML D5W 50 ML IV SCH (09:04)
[2020-07-08] MEDS: ZINC SULFATE 220mg CAP or TAB PO SCH (09:15)
[2020-07-08] MEDS: DOXYCYCLINE 100 MG TAB/CAP PO SCH ×2 (09:15→21:37)
[2020-07-08] MEDS: DexAMETHasone SOD PHOS 10MG/1ML VIAL INJ IV SCH (09:15)
[2020-07-08] MEDS: ENOXAPARIN SOD 40 MG/0.4 ML SYRINGE SC SCH (09:16)
[2020-07-08] MEDS: FUROSEMIDE 40 MG/4 ML VIAL IV SCH (09:16)
[2020-07-08] MEDS: POTASSIUM EFFERVESENT TAB 25 MEQ PO SCH (09:16)
[2020-07-08] MEDS: ASCORBIC ACID 1,000 MG TAB PO SCH (09:16)
[2020-07-08] MEDS: PANTOPRAZOLE 40 MG TAB PO SCH ×2 (09:16→21:37)
[2020-07-08] MEDS: CHOLECALCIFEROL (VITD3) 2,000 UNIT CAP/TAB PO SCH (09:17)
[2020-07-08] MEDS: INSULIN LANTUS (GLARGINE) 1 /0.01ml (100units/ml) SC SCH ×2 (09:30→22:00)
[2020-07-08] MEDS: HYDROcodone-ACET 10/325MG TAB PO PRN ×2 (09:30→22:02)
[2020-07-08] MEDS ORDERED: LOPERAMIDE HCL 2 MG CAP PO ONE (09:45)
[2020-07-08] MEDS: BUDESONIDE (INHALATION) 180 MCG IH IN SCH ×2 (09:49→23:06)
[2020-07-08 16:00] VITALS: BP 115/77
[2020-07-08] MEDS: ELVITEGRAVIR COBICISTAT EMTRIC PO SCH (17:38)
[2020-07-08] MEDS: ALBUTEROL SULF HFA 90MCG INH 200DOSE IN PRN (23:07)
[2020-07-09] VITALS: BP 101/62
[2020-07-09] MEDS: ACCU-CHEK COMFORT CURVE STRIP VI SCH ×4 (05:08→18:27)
[2020-07-09] MEDS: SUCRALFATE 1 GM/10 ML ORAL SUSP PO SCH ×4 (05:08→22:23)
[2020-07-09] MEDS: metroNIDAZOLE 500MG/100ML 100 ML IV SCH ×3 (05:08→22:23)
[2020-07-09] MEDS: InsuLIN REG 1unit/0.01ml Soln (100units/ml) SC SCH ×4 (05:55→18:29)
[2020-07-09 06:15] LABS: Basophils # (auto) 0 10 ^3/uL (0-0.2); Eosinophils # (auto) 0 10 ^3/uL (0-0.8)
[2020-07-09 06:18] LABS: Basophils % (auto) 0.4 % (0.0-2.0); Hematocrit 37.7 % (41.0-53.0); Hemoglobin 12.8 g/dL (13.5-17.5); Lymphocytes # (auto) 0.4 10 ^3/uL (0.4-5.4); Lymphocytes % (auto) 3.7 % (10.0-50.0); Mean Corpuscular Volume 105.8 fL (80.0-100.0); Monocytes # (auto) 0.9 10 ^3/uL (0-1.3); Neutrophils # (auto) 9.6 10 ^3/uL (1.6-8.6); Neutrophils % (auto) 87.9 % (37.0-80.0); Red Blood Cells 3.57 10^6/uL (4.5-5.90); Red Cell Distribution Width 12.8 % (11.8-14.3); White Blood Cell 10.9 10^3/uL (4.4-10.8)
[2020-07-09 06:40] LABS: Potassium 3.7 mmol/L (3.5-5.1)
[2020-07-09 06:44] LABS: BUN/Creatinine Ratio 28.4; Calcium 9.3 mg/dL (8.5-10.1)
[2020-07-09 08:00] VITALS: BP 105/71
[2020-07-09] MEDS: BUDESONIDE (INHALATION) 180 MCG IH IN SCH (08:38)
[2020-07-09] MEDS: ALBUTEROL SULF HFA 90MCG INH 200DOSE IN PRN (08:38)
[2020-07-09] MEDS: cefTRIAXone 1GM/50ML D5W 50 ML IV SCH (09:01)
[2020-07-09] MEDS: PANTOPRAZOLE 40 MG TAB PO SCH ×2 (09:01→22:23)
[2020-07-09] MEDS: FUROSEMIDE 40 MG/4 ML VIAL IV SCH (09:02)
[2020-07-09] MEDS: ZINC SULFATE 220mg CAP or TAB PO SCH (09:02)
[2020-07-09] MEDS: DOXYCYCLINE 100 MG TAB/CAP PO SCH (09:02)
[2020-07-09] MEDS: ASCORBIC ACID 1,000 MG TAB PO SCH (09:02)
[2020-07-09] MEDS: ENOXAPARIN SOD 40 MG/0.4 ML SYRINGE SC SCH (09:02)
[2020-07-09] MEDS: DexAMETHasone SOD PHOS 10MG/1ML VIAL INJ IV SCH (09:02)
[2020-07-09] MEDS: CHOLECALCIFEROL (VITD3) 2,000 UNIT CAP/TAB PO SCH (09:03)
[2020-07-09] MEDS: POTASSIUM EFFERVESENT TAB 25 MEQ PO SCH (09:11)
[2020-07-09] MEDS: HYDROcodone-ACET 10/325MG TAB PO PRN ×3 (09:31→23:00)
[2020-07-09] MEDS ORDERED: LOPERAMIDE HCL 2 MG CAP PO ONE (10:00)
[2020-07-09] MEDS: LOPERAMIDE HCL 2 MG CAP PO SCH (10:00)
[2020-07-09] MEDS: INSULIN LANTUS (GLARGINE) 1 /0.01ml (100units/ml) SC SCH ×2 (11:15→22:24)
[2020-07-09 16:00] VITALS: BP 97/63
[2020-07-09] MEDS: ELVITEGRAVIR COBICISTAT EMTRIC PO SCH (18:27)
[2020-07-10] VITALS: BP_SYST 103; BP_SYST 107; BP_DIAS 54; BP_DIAS 77
[2020-07-10] MEDS: ACCU-CHEK COMFORT CURVE STRIP VI SCH ×5 (00:10→23:20)
[2020-07-10] MEDS: BUDESONIDE (INHALATION) 180 MCG IH IN SCH ×3 (00:27→20:20)
[2020-07-10] MEDS: InsuLIN REG 1unit/0.01ml Soln (100units/ml) SC SCH ×5 (00:27→23:21)
[2020-07-10] MEDS: ALBUTEROL SULF HFA 90MCG INH 200DOSE IN PRN (06:55)
[2020-07-10] MEDS: SUCRALFATE 1 GM/10 ML ORAL SUSP PO SCH ×4 (07:17→22:00)
[2020-07-10] MEDS: metroNIDAZOLE 500MG/100ML 100 ML IV SCH ×3 (07:17→22:00)
[2020-07-10 07:58] LABS: BUN/Creatinine Ratio 30.9; Potassium 3.6 mmol/L (3.5-5.1)
[2020-07-10 07:59] LABS: Basophils # (auto) 0 10 ^3/uL (0-0.2); Basophils % (auto) 0.1 % (0.0-2.0); Eosinophils # (auto) 0 10 ^3/uL (0-0.8); Hemoglobin 12.1 g/dL (13.5-17.5); White Blood Cell 10.9 10^3/uL (4.4-10.8)
[2020-07-10 08:00] VITALS: BP 111/62
[2020-07-10 08:01] LABS: Hematocrit 35.4 % (41.0-53.0); Lymphocytes # (auto) 0.2 10 ^3/uL (0.4-5.4); Lymphocytes % (auto) 2.1 % (10.0-50.0); Mean Corpuscular Hemoglobin 36.3 pg (28.0-32.0); Mean Corpuscular Hgb Conc. 34.3 g/dL (32.0-36.0); Mean Corpuscular Volume 105.9 fL (80.0-100.0); Monocytes # (auto) 0.9 10 ^3/uL (0-1.3); Monocytes % (auto) 8.1 % (0.0-12.0); Neutrophils # (auto) 9.8 10 ^3/uL (1.6-8.6); Neutrophils % (auto) 89.7 % (37.0-80.0); Nucleated Red Blood Cells % 0.2 %; Red Blood Cells 3.34 10^6/uL (4.5-5.90); Red Cell Distribution Width 12.3 % (11.8-14.3)
[2020-07-10] MEDS: LOPERAMIDE HCL 2 MG CAP PO SCH (09:24)
[2020-07-10] MEDS: cefTRIAXone 1GM/50ML D5W 50 ML IV SCH (09:25)
[2020-07-10] MEDS: ASCORBIC ACID 1,000 MG TAB PO SCH (09:25)
[2020-07-10] MEDS: PANTOPRAZOLE 40 MG TAB PO SCH ×2 (09:25→22:01)
[2020-07-10] MEDS: ZINC SULFATE 220mg CAP or TAB PO SCH (09:25)
[2020-07-10] MEDS: DexAMETHasone SOD PHOS 10MG/1ML VIAL INJ IV SCH (09:25)
[2020-07-10] MEDS: CHOLECALCIFEROL (VITD3) 2,000 UNIT CAP/TAB PO SCH (09:26)
[2020-07-10] MEDS: ENOXAPARIN SOD 40 MG/0.4 ML SYRINGE SC SCH (09:26)
[2020-07-10] MEDS: POTASSIUM EFFERVESENT TAB 25 MEQ PO SCH (09:37)
[2020-07-10] MEDS: HYDROcodone-ACET 10/325MG TAB PO PRN ×3 (09:38→22:01)
[2020-07-10] MEDS: FUROSEMIDE 40 MG/4 ML VIAL IV SCH (09:38)
[2020-07-10] MEDS: INSULIN LANTUS (GLARGINE) 1 /0.01ml (100units/ml) SC SCH ×2 (11:43→23:21)
[2020-07-10] MEDS ORDERED: MAGN400C3 PO (15:47)
[2020-07-10] MEDS ORDERED: MELO1TAB56 PO (15:48)
[2020-07-10 16:03] VITALS: BP 105/65
[2020-07-10] MEDS: ELVITEGRAVIR COBICISTAT EMTRIC PO SCH (18:03)
[2020-07-11] VITALS: BP 103/54
[2020-07-11] MEDS: ACCU-CHEK COMFORT CURVE STRIP VI SCH ×4 (05:35→23:00)
[2020-07-11] MEDS: InsuLIN REG 1unit/0.01ml Soln (100units/ml) SC SCH ×4 (05:35→23:00)
[2020-07-11] MEDS: SUCRALFATE 1 GM/10 ML ORAL SUSP PO SCH ×4 (06:24→21:01)
[2020-07-11] MEDS: metroNIDAZOLE 500 MG TAB PO SCH ×3 (06:24→21:00)
[2020-07-11] MEDS: BUDESONIDE (INHALATION) 180 MCG IH IN SCH ×2 (06:28→22:06)
[2020-07-11] MEDS: ALBUTEROL SULF HFA 90MCG INH 200DOSE IN PRN ×2 (06:28→22:07)
[2020-07-11 07:33] VITALS: BP 100/63
[2020-07-11] MEDS: POTASSIUM EFFERVESENT TAB 25 MEQ PO SCH (09:45)
[2020-07-11] MEDS: PANTOPRAZOLE 40 MG TAB PO SCH ×2 (10:05→21:01)
[2020-07-11] MEDS: FUROSEMIDE 40 MG/4 ML VIAL IV SCH (10:05)
[2020-07-11] MEDS: CHOLECALCIFEROL (VITD3) 2,000 UNIT CAP/TAB PO SCH (10:05)
[2020-07-11] MEDS: ENOXAPARIN SOD 40 MG/0.4 ML SYRINGE SC SCH (10:05)
[2020-07-11] MEDS: DexAMETHasone SOD PHOS 10MG/1ML VIAL INJ IV SCH (10:05)
[2020-07-11] MEDS: cefTRIAXone 1GM/50ML D5W 50 ML IV SCH (10:05)
[2020-07-11] MEDS: LOPERAMIDE HCL 2 MG CAP PO SCH (10:06)
[2020-07-11] MEDS: ZINC SULFATE 220mg CAP or TAB PO SCH (10:06)
[2020-07-11] MEDS: ASCORBIC ACID 1,000 MG TAB PO SCH (10:06)
[2020-07-11] MEDS: INSULIN LANTUS (GLARGINE) 1 /0.01ml (100units/ml) SC SCH ×2 (10:16→23:00)
[2020-07-11] MEDS ORDERED: ACETAMINOPHEN 325 MG TAB PO PRN (12:00)
[2020-07-11 15:50] VITALS: BP 115/63
[2020-07-11] MEDS: ELVITEGRAVIR COBICISTAT EMTRIC PO SCH (17:25)
[2020-07-11] MEDS: HYDROcodone-ACET 10/325MG TAB PO PRN (21:01)
[2020-07-12 00:08] VITALS: BP 100/59
[2020-07-12] MEDS: ACCU-CHEK COMFORT CURVE STRIP VI SCH ×4 (06:19→22:37)
[2020-07-12] MEDS: metroNIDAZOLE 500 MG TAB PO SCH ×3 (06:20→22:35)
[2020-07-12] MEDS: InsuLIN REG 1unit/0.01ml Soln (100units/ml) SC SCH ×4 (06:26→22:37)
[2020-07-12] MEDS: HYDROcodone-ACET 10/325MG TAB PO PRN ×2 (06:54→20:05)
[2020-07-12] MEDS: SUCRALFATE 1 GM/10 ML ORAL SUSP PO SCH ×4 (06:54→22:35)
[2020-07-12] MEDS: ALBUTEROL SULF HFA 90MCG INH 200DOSE IN PRN ×2 (07:05→20:37)
[2020-07-12] MEDS: BUDESONIDE (INHALATION) 180 MCG IH IN SCH ×2 (07:05→19:36)
[2020-07-12 08:28] VITALS: BP 107/64
[2020-07-12] MEDS ORDERED: predniSONE 20 MG TAB PO SCH (10:00)
[2020-07-12] MEDS: POTASSIUM EFFERVESENT TAB 25 MEQ PO SCH (10:12)
[2020-07-12] MEDS: PANTOPRAZOLE 40 MG TAB PO SCH ×2 (10:13→22:35)
[2020-07-12] MEDS: CHOLECALCIFEROL (VITD3) 2,000 UNIT CAP/TAB PO SCH (10:13)
[2020-07-12] MEDS: ASCORBIC ACID 1,000 MG TAB PO SCH (10:13)
[2020-07-12] MEDS: ZINC SULFATE 220mg CAP or TAB PO SCH (10:13)
[2020-07-12] MEDS: cefTRIAXone 1GM/50ML D5W 50 ML IV SCH (10:13)
[2020-07-12] MEDS: LOPERAMIDE HCL 2 MG CAP PO SCH (10:13)
[2020-07-12] MEDS: FUROSEMIDE 40 MG/4 ML VIAL IV SCH (10:13)
[2020-07-12] MEDS: ENOXAPARIN SOD 40 MG/0.4 ML SYRINGE SC SCH (10:14)
[2020-07-12] MEDS: INSULIN LANTUS (GLARGINE) 1 /0.01ml (100units/ml) SC SCH ×2 (10:22→22:36)
[2020-07-12] MEDS ORDERED: LOPE2TAB PO (15:33)
[2020-07-12] MEDS ORDERED: METR500T PO (15:33)
[2020-07-12] MEDS ORDERED: SUCR1TAB22 PO (15:34)
[2020-07-12] MEDS ORDERED: PANT40TA2 PO (15:35)
[2020-07-12] MEDS ORDERED: METH4PAK PO (15:35)
[2020-07-12 16:00] VITALS: BP 107/70
[2020-07-12] MEDS: ELVITEGRAVIR COBICISTAT EMTRIC PO SCH (17:31)
[2020-07-13] VITALS: BP 123/71
[2020-07-13] MEDS: HYDROcodone-ACET 10/325MG TAB PO PRN ×2 (01:40→06:46)
[2020-07-13] MEDS: InsuLIN REG 1unit/0.01ml Soln (100units/ml) SC SCH (06:00)
[2020-07-13] MEDS: ACCU-CHEK COMFORT CURVE STRIP VI SCH (06:44)
[2020-07-13] MEDS: SUCRALFATE 1 GM/10 ML ORAL SUSP PO SCH (06:45)
[2020-07-13] MEDS: BUDESONIDE (INHALATION) 180 MCG IH IN SCH (06:45)
[2020-07-13] MEDS: ALBUTEROL SULF HFA 90MCG INH 200DOSE IN PRN (06:45)
[2020-07-13] MEDS: metroNIDAZOLE 500 MG TAB PO SCH (06:45)
[2020-07-13 08:00] VITALS: BP 117/70
== END 2020-07-13 09:27 | disposition home or self-care (01) | DRG 974 ==
LOC: ER 11:31 → OVERFLOW 17:08 → TELE-WESTW 07-02 17:41
PROVIDERS: ADMIT Internal Medicine; ATTEND Internal Medicine Nephrology
PROC: XW033E5 Introduction of Remdesivir Anti-infective into Peripheral Vein, Percutaneous Approach, New Technology Group 5 (ICD-10-PCS; 2020-06-29)
PROC: 5A0955A Assistance with Respiratory Ventilation, Greater than 96 Consecutive Hours, High Flow/Velocity Cannula (ICD-10-PCS; 2020-07-02)
PROC: XW13325 Transfusion of Convalescent Plasma (Nonautologous) into Peripheral Vein, Percutaneous Approach, New Technology Group 5 (ICD-10-PCS; principal; 2020-07-07)
DX: A41.89 Other specified sepsis (principal); E11.10 Type 2 diabetes mellitus with ketoacidosis without coma; B20 Human immunodeficiency virus [HIV] disease; J96.01 Acute respiratory failure with hypoxia; J12.82 Pneumonia due to coronavirus disease 2019; U07.1 COVID-19; E87.1 Hypo-osmolality and hyponatremia; E44.0 Moderate protein-calorie malnutrition; K92.1 Melena; E87.3 Alkalosis; R65.20 Severe sepsis without septic shock; E83.42 Hypomagnesemia; R31.9 Hematuria, unspecified; K21.9 Gastro-esophageal reflux disease without esophagitis; I10 Essential (primary) hypertension; E78.5 Hyperlipidemia, unspecified; E11.65 Type 2 diabetes mellitus with hyperglycemia; B95.7 Other staphylococcus as the cause of diseases classified elsewhere; E87.6 Hypokalemia; F17.210 Nicotine dependence, cigarettes, uncomplicated; Z82.49 Family history of ischemic heart disease and other diseases of the circulatory system; Z83.3 Family history of diabetes mellitus; Z68.27 Body mass index [BMI] 27.0-27.9, adult
CPT/HCPCS: 36415; 36600; 71045; 74176; 76705; 80048; 80053; 80202; 81001; 82150; 82270; 82378; 82728; 82805; 82962; 83036; 83605; 83690; 83735; 83880; 84484; 85014; 85018; 85025; 85045; 85379; 85610; 85652; 85730; 86141; 86850; 86900; 86901; 87040; 87045; 87077; 87086; 87186; 87426; 87427; 87493; 93005; 93970; 94640; 96365; 96366; 96375; 99291; G0378; J0696; J1100; J1815; J1956; J3490

== ENCOUNTER → 2020-08-02 | Outpatient (CLI) | payer MEDICARE, MEDICAID ==
[~2020-08-02] MED LIST changes: +LOPE2TAB PO; +MAGN400C3 PO; +MELO1TAB56 PO; +METH4PAK PO; +METR500T PO; +PANT40TA2 PO; +SUCR1TAB22 PO
== END | disposition home or self-care (01) ==
LOC: LAB 10:47
PROVIDERS: ATTEND Internal Medicine Gastroenterology
DX: K92.2 Gastrointestinal hemorrhage, unspecified (principal)
CPT/HCPCS: 36415; 85018

== ENCOUNTER → 2020-10-02 | Outpatient (CLI) | payer MEDICARE, MEDICAID | END | disposition home or self-care (01) | LOC: XYW 10:16 | PROVIDERS: ATTEND Orthopaedic Surgery Adult Reconstructive Orthopaedic Surgery | DX: S46.301A Unspecified injury of muscle, fascia and tendon of triceps, right arm, initial encounter (principal); M70.21 Olecranon bursitis, right elbow; X58.XXXA Exposure to other specified factors, initial encounter; Y93.89 Activity, other specified; Y92.89 Other specified places as the place of occurrence of the external cause; Y99.8 Other external cause status | CPT/HCPCS: 73218 ==

== ENCOUNTER → 2020-11-01 | Outpatient (CLI) | payer MEDICARE, MEDICAID ==
[2020-11-01 13:46] LABS: Basophils # (auto) 0.1 10 ^3/uL (0-0.2); Basophils % (auto) 1.8 % (0.0-2.0); Eosinophils # (auto) 0.2 10 ^3/uL (0-0.8); Eosinophils % (auto) 2.3 % (0.0-7.0); Hematocrit 35.1 % (41.0-53.0); Hemoglobin 11.3 g/dL (13.5-17.5); Lymphocytes # (auto) 2.4 10 ^3/uL (0.4-5.4); Lymphocytes % (auto) 31.5 % (10.0-50.0); Mean Corpuscular Hemoglobin 29.5 pg (28.0-32.0); Mean Corpuscular Hgb Conc. 32.2 g/dL (32.0-36.0); Mean Corpuscular Volume 91.6 fL (80.0-100.0); Monocytes % (auto) 12.9 % (0.0-12.0); Neutrophils % (auto) 51.5 % (37.0-80.0); Nucleated Red Blood Cells % 0.1 %; Platelet Count (auto) 441 10^3/uL (140-450); Red Blood Cells 3.83 10^6/uL (4.5-5.90); Red Cell Distribution Width 16.1 % (11.8-14.3); White Blood Cell 7.8 10^3/uL (4.4-10.8)
== END | disposition home or self-care (01) ==
LOC: LAB 13:29
PROVIDERS: ATTEND Internal Medicine Gastroenterology
DX: K92.2 Gastrointestinal hemorrhage, unspecified (principal)
CPT/HCPCS: 36415; 85025

== ENCOUNTER → 2021-04-15 | Outpatient (CLI) | payer MEDICARE, MEDICAID ==
[2021-04-15 13:26] LABS: Basophils # (auto) 0 10 ^3/uL (0-0.2); Basophils % (auto) 0.7 % (0.0-2.0); Eosinophils # (auto) 0.1 10 ^3/uL (0-0.8); Eosinophils % (auto) 2.1 % (0.0-7.0); Hematocrit 37.2 % (41.0-53.0); Hemoglobin 11.7 g/dL (13.5-17.5); Lymphocytes # (auto) 1.8 10 ^3/uL (0.4-5.4); Lymphocytes % (auto) 29.5 % (10.0-50.0); Mean Corpuscular Hemoglobin 26.5 pg (28.0-32.0); Mean Corpuscular Hgb Conc. 31.6 g/dL (32.0-36.0); Mean Corpuscular Volume 83.9 fL (80.0-100.0); Monocytes # (auto) 0.8 10 ^3/uL (0-1.3); Monocytes % (auto) 13.6 % (0.0-12.0); Neutrophils # (auto) 3.3 10 ^3/uL (1.6-8.6); Neutrophils % (auto) 54.1 % (37.0-80.0); Nucleated Red Blood Cells % 0.1 %; Red Blood Cells 4.43 10^6/uL (4.5-5.90); Red Cell Distribution Width 19.1 % (11.8-14.3); White Blood Cell 6.1 10^3/uL (4.4-10.8)
== END | disposition home or self-care (01) ==
LOC: LAB 13:10
PROVIDERS: ATTEND Internal Medicine Gastroenterology
DX: K92.1 Melena (principal)
CPT/HCPCS: 36415; 85025

== ENCOUNTER 2022-08-10 13:07 | Inpatient (IN) | payer MEDICARE, MEDICAID ==
[~2022-08-10] VITALS: Ht 180.3 cm; Wt 72.1 kg
[2022-08-10 13:44] LABS: Basophils # (auto) 0 10 ^3/uL (0-0.2); Basophils % (auto) 0.3 % (0.0-2.0); Eosinophils # (auto) 0 10 ^3/uL (0-0.8); Eosinophils % (auto) 0.1 % (0.0-7.0); Hematocrit 42.4 % (41.0-53.0); Hemoglobin 14.2 g/dL (13.5-17.5); Lymphocytes # (auto) 0.8 10 ^3/uL (0.4-5.4); Lymphocytes % (auto) 6.8 % (10.0-50.0); Mean Corpuscular Hgb Conc. 33.6 g/dL (32.0-36.0); Mean Corpuscular Volume 101.3 fL (80.0-100.0); Monocytes # (auto) 0.7 10 ^3/uL (0-1.3); Monocytes % (auto) 6.3 % (0.0-12.0); Neutrophils # (auto) 9.9 10 ^3/uL (1.6-8.6); Neutrophils % (auto) 86.5 % (37.0-80.0); Nucleated Red Blood Cells % 0.4 %; Red Blood Cells 4.19 10^6/uL (4.5-5.90); Red Cell Distribution Width 14.9 % (11.8-14.3); White Blood Cell 11.5 10^3/uL (4.4-10.8)
[2022-08-10 13:59] LABS: Potassium 5.1 mmol/L (3.5-5.1)
[2022-08-10] MEDS ORDERED: dilTIAZem 25 MG/5 ML VIAL IV ONE (14:00)
[2022-08-10 14:04] LABS: Calcium 9.2 mg/dL (8.5-10.1)
[2022-08-10 14:11] LABS: Bilirubin, Total 0.7 mg/dL (0.2-1.0)
[2022-08-10] MEDS ORDERED: MAALOX PLUS or MAALOX 30 ML PO ONE (14:45)
[2022-08-10] MEDS ORDERED: ONDANSETRON HCL 4 MG/2 ML VIAL IV PRN (14:45)
[2022-08-10] MEDS ORDERED: NITROGLYCERIN 0.4 MG SL TAB SL PRN ×2 (14:45)
[2022-08-10] MEDS ORDERED: LORazepam 0.5 MG TAB PO PRN (14:45)
[2022-08-10] MEDS ORDERED: ZOLPIDEM TARTRATE 5 MG TAB PO PRN (14:45)
[2022-08-10] MEDS ORDERED: ENOXAPARIN SOD 80 MG/0.8ML SYRINGE SC SCH (15:10)
[2022-08-10] MEDS ORDERED: cefTRIAXone 1GM/50ML D5W 50 ML IV SCH (15:15)
[2022-08-10] MEDS: SODIUM CHLORIDE 0.9% 1,000 ML IV SCH (15:41)
[2022-08-10] MEDS: AZITHROMYCIN 500MG/ 250ML 250 ML IV SCH (15:43)
[2022-08-10] MEDS: METOPROLOL TARTRATE 25 MG TAB PO SCH ×2 (15:45→23:12)
[2022-08-10] MEDS ORDERED: ALBUTEROL MEDNEB 2.5 mg/3ml NEB ONE (18:14)
[2022-08-10] MEDS: IPRATROPIUM BROM 0.5 MG/2.5ML INH SOL NEB PRN (18:23)
[2022-08-10] MEDS: ALBUTEROL SULF 2.5 MG/0.5ML(0.5%) NEB SOLN NEB PRN (18:23)
[2022-08-10 18:59] VITALS: BP 121/71
[2022-08-10] MEDS ORDERED: DEXTROSE (50%) 50ML SYRG IV PRN (21:15)
[2022-08-10] MEDS ORDERED: METOPROLOL TARTRATE 25 MG TAB PO SCH (22:00)
[2022-08-10] MEDS: methylPREDNISolone SOD SUCC 40 MG/ML VL IV SCH (23:11)
[2022-08-10] MEDS: ATORVASTATIN 20 MG TAB PO SCH (23:11)
[2022-08-10] MEDS: ACCU-CHEK COMFORT CURVE STRIP VI SCH (23:13)
[2022-08-10] MEDS: InsuLIN REG 1unit/0.01ml Soln (100units/ml) SC SCH (23:14)
[2022-08-10] MEDS ORDERED: ATORVASTATIN 20 MG TAB ONE (23:22)
[2022-08-11 02:16] LABS: Urine Bacteria NONE SEEN /hpf (None Seen); Urine Blood Negative /uL (Negative); Urine Specific Gravity 1.026 (1.001-1.035); Urine WBC <1 /hpf (0 - 3)
[2022-08-11] MEDS: SODIUM CHLORIDE 0.9% 1,000 ML IV SCH ×2 (04:05→16:50)
[2022-08-11] MEDS: ACETAMINOPHEN 325 MG TAB PO PRN ×2 (04:17→18:33)
[2022-08-11 06:52] LABS: Potassium 5.3 mmol/L (3.5-5.1)
[2022-08-11 06:58] LABS: BUN/Creatinine Ratio 33.7; Calcium 8.7 mg/dL (8.5-10.1)
[2022-08-11 07:00] LABS: Basophils # (auto) 0 10 ^3/uL (0-0.2); Basophils % (auto) 0.1 % (0.0-2.0); Eosinophils # (auto) 0 10 ^3/uL (0-0.8); Hemoglobin 13.4 g/dL (13.5-17.5); Lymphocytes # (auto) 0.4 10 ^3/uL (0.4-5.4); Lymphocytes % (auto) 5.9 % (10.0-50.0); Mean Corpuscular Hemoglobin 34.8 pg (28.0-32.0); Mean Corpuscular Hgb Conc. 34.3 g/dL (32.0-36.0); Mean Corpuscular Volume 101.4 fL (80.0-100.0); Monocytes # (auto) 0.1 10 ^3/uL (0-1.3); Neutrophils # (auto) 6.8 10 ^3/uL (1.6-8.6); Nucleated Red Blood Cells % 0.4 %; Red Blood Cells 3.85 10^6/uL (4.5-5.90); Red Cell Distribution Width 14.8 % (11.8-14.3); White Blood Cell 7.4 10^3/uL (4.4-10.8)
[2022-08-11] MEDS: InsuLIN REG 1unit/0.01ml Soln (100units/ml) SC SCH ×4 (07:02→21:24)
[2022-08-11] MEDS: ACCU-CHEK COMFORT CURVE STRIP VI SCH ×4 (07:06→21:22)
[2022-08-11 09:00] VITALS: BP 118/80
[2022-08-11] MEDS ORDERED: ASPirin 81 mg TAB PO SCH (10:00)
[2022-08-11] MEDS ORDERED: CLOPIDOGREL BISULFATE 75 MG TAB PO SCH (10:00)
[2022-08-11 10:02] VITALS: BP 118/80
[2022-08-11] MEDS ORDERED: DIGOXIN (250MCG/ML) 2 ML AMPULE IV ONE (11:15)
[2022-08-11] MEDS: AZITHROMYCIN 500MG/ 250ML 250 ML IV SCH (11:57)
[2022-08-11] MEDS: DOCUSATE SOD 100 MG CAP PO SCH (11:59)
[2022-08-11] MEDS: methylPREDNISolone SOD SUCC 40 MG/ML VL IV SCH ×2 (11:59→21:08)
[2022-08-11] MEDS: METOPROLOL TARTRATE 25 MG TAB PO SCH ×2 (12:00→21:21)
[2022-08-11] MEDS: LISINOPRIL 10 MG TAB PO SCH (12:00)
[2022-08-11 13:00] VITALS: BP 130/28
[2022-08-11 17:00] VITALS: BP 93/50
[2022-08-11] MEDS ORDERED: ALBUTEROL MEDNEB 2.5 mg/3ml NEB ONE ×2 (18:01→21:45)
[2022-08-11] MEDS: IPRATROPIUM BROM 0.5 MG/2.5ML INH SOL NEB PRN ×2 (19:35→22:23)
[2022-08-11] MEDS: ALBUTEROL SULF 2.5 MG/0.5ML(0.5%) NEB SOLN NEB PRN ×2 (19:35→22:23)
[2022-08-11] MEDS: ATORVASTATIN 20 MG TAB PO SCH (21:09)
[2022-08-11] MEDS: AMIODARONE HCL 200 MG TAB PO SCH (21:09)
[2022-08-11 22:00] VITALS: BP 99/58
[2022-08-12 05:41] VITALS: BP 128/66
[2022-08-12] MEDS: ACCU-CHEK COMFORT CURVE STRIP VI SCH ×4 (06:20→21:31)
[2022-08-12] MEDS: InsuLIN REG 1unit/0.01ml Soln (100units/ml) SC SCH ×4 (06:21→21:37)
[2022-08-12] MEDS: SODIUM CHLORIDE 0.9% 1,000 ML IV SCH ×2 (06:30→20:05)
[2022-08-12 09:00] VITALS: BP 118/74
[2022-08-12] MEDS: methylPREDNISolone SOD SUCC 40 MG/ML VL IV SCH ×2 (09:14→21:08)
[2022-08-12] MEDS: DOCUSATE SOD 100 MG CAP PO SCH (09:14)
[2022-08-12] MEDS: AZITHROMYCIN 500MG/ 250ML 250 ML IV SCH (09:14)
[2022-08-12] MEDS: METOPROLOL TARTRATE 25 MG TAB PO SCH ×2 (09:15→21:31)
[2022-08-12] MEDS: AMIODARONE HCL 200 MG TAB PO SCH ×2 (09:15→21:09)
[2022-08-12] MEDS: PANTOPRAZOLE 40 MG TAB PO SCH (09:15)
[2022-08-12] MEDS: LISINOPRIL 10 MG TAB PO SCH (09:16)
[2022-08-12] MEDS: cefTRIAXone 1GM/50ML D5W 50 ML IV SCH (12:19)
[2022-08-12 13:00] VITALS: BP 111/64
[2022-08-12 16:43] VITALS: BP 118/74
[2022-08-12] MEDS: ACETAMINOPHEN 325 MG TAB PO PRN (18:15)
[2022-08-12] MEDS: ATORVASTATIN 20 MG TAB PO SCH (21:09)
[2022-08-12 22:00] VITALS: BP 117/65
[2022-08-13] MEDS: ACETAMINOPHEN 325 MG TAB PO PRN ×3 (03:45→20:01)
[2022-08-13 05:58] VITALS: BP 132/75
[2022-08-13] MEDS: ACCU-CHEK COMFORT CURVE STRIP VI SCH ×4 (06:13→21:31)
[2022-08-13] MEDS: InsuLIN REG 1unit/0.01ml Soln (100units/ml) SC SCH ×4 (06:14→21:35)
[2022-08-13 09:00] VITALS: BP 120/71
[2022-08-13] MEDS: LISINOPRIL 10 MG TAB PO SCH (09:42)
[2022-08-13] MEDS: AMIODARONE HCL 200 MG TAB PO SCH ×2 (09:43→21:25)
[2022-08-13] MEDS: DOCUSATE SOD 100 MG CAP PO SCH (09:43)
[2022-08-13] MEDS: METOPROLOL TARTRATE 25 MG TAB PO SCH ×2 (09:43→21:35)
[2022-08-13] MEDS: ASPirin 81 mg TAB PO SCH (09:44)
[2022-08-13] MEDS: methylPREDNISolone SOD SUCC 40 MG/ML VL IV SCH ×2 (09:44→22:09)
[2022-08-13] MEDS: PANTOPRAZOLE 40 MG TAB PO SCH (09:45)
[2022-08-13] MEDS: cefTRIAXone 1GM/50ML D5W 50 ML IV SCH (09:45)
[2022-08-13] MEDS: GENVOYA PO SCH (09:46)
[2022-08-13] MEDS: SODIUM CHLORIDE 0.9% 1,000 ML IV SCH (09:53)
[2022-08-13] MEDS ORDERED: PATIENTS OWN MEDICATION (eliquis 5 MG) PO SCH (10:00)
[2022-08-13] MEDS: APIXABAN 5 MG TAB PO SCH ×2 (10:24→21:25)
[2022-08-13] MEDS: AZITHROMYCIN 500MG/ 250ML 250 ML IV SCH (11:16)
[2022-08-13 13:00] VITALS: BP 130/61
[2022-08-13 16:59] VITALS: BP 108/56
[2022-08-13] MEDS: ALBUTEROL SULF 2.5 MG/0.5ML(0.5%) NEB SOLN NEB PRN (19:37)
[2022-08-13] MEDS: IPRATROPIUM BROM 0.5 MG/2.5ML INH SOL NEB PRN (19:37)
[2022-08-13] MEDS: ATORVASTATIN 20 MG TAB PO SCH (21:24)
[2022-08-13 22:00] VITALS: BP 117/73
[2022-08-13] MEDS ORDERED: INSULIN LANTUS (GLARGINE) 1 /0.01ml (100units/ml) SC SCH (22:00)
[2022-08-13] MEDS ORDERED: ALBUTEROL MEDNEB 2.5 mg/3ml NEB ONE (22:22)
[2022-08-14] MEDS: SODIUM CHLORIDE 0.9% 1,000 ML IV SCH ×2 (04:49→12:05)
[2022-08-14 05:00] VITALS: BP 133/66
[2022-08-14] MEDS: ACCU-CHEK COMFORT CURVE STRIP VI SCH ×4 (06:17→22:08)
[2022-08-14] MEDS: InsuLIN REG 1unit/0.01ml Soln (100units/ml) SC SCH ×4 (06:24→22:11)
[2022-08-14] MEDS ORDERED: APIX5TAB PO ×2 (08:23)
[2022-08-14] MEDS ORDERED: AZIT500T66 PO ×2 (08:23)
[2022-08-14] MEDS ORDERED: AMIO200T33 PO ×2 (08:23)
[2022-08-14 09:00] VITALS: BP 119/79
[2022-08-14] MEDS: cefTRIAXone 1GM/50ML D5W 50 ML IV SCH (10:48)
[2022-08-14] MEDS: GENVOYA PO SCH (10:52)
[2022-08-14] MEDS: methylPREDNISolone SOD SUCC 40 MG/ML VL IV SCH ×2 (10:52→21:55)
[2022-08-14] MEDS: DOCUSATE SOD 100 MG CAP PO SCH (10:52)
[2022-08-14] MEDS: PANTOPRAZOLE 40 MG TAB PO SCH (10:53)
[2022-08-14] MEDS: AMIODARONE HCL 200 MG TAB PO SCH ×2 (10:53→21:55)
[2022-08-14] MEDS: ASPirin 81 mg TAB PO SCH (10:53)
[2022-08-14] MEDS: APIXABAN 5 MG TAB PO SCH ×2 (10:54→21:55)
[2022-08-14] MEDS: LISINOPRIL 10 MG TAB PO SCH (10:55)
[2022-08-14] MEDS: METOPROLOL TARTRATE 25 MG TAB PO SCH ×2 (10:56→21:56)
[2022-08-14] MEDS: AZITHROMYCIN 500MG/ 250ML 250 ML IV SCH (12:00)
[2022-08-14 13:00] VITALS: BP 139/61
[2022-08-14 17:00] VITALS: BP 125/71
[2022-08-14] MEDS: ATORVASTATIN 20 MG TAB PO SCH (21:55)
[2022-08-14 22:00] VITALS: BP 124/82
[2022-08-14] MEDS ORDERED: INSULIN LANTUS (GLARGINE) 1 /0.01ml (100units/ml) SC SCH (22:00)
[2022-08-14] MEDS: ACETAMINOPHEN 325 MG TAB PO PRN (22:11)
[2022-08-15] MEDS: SODIUM CHLORIDE 0.9% 1,000 ML IV SCH ×2 (03:14→04:14)
[2022-08-15 05:00] VITALS: BP 133/87
[2022-08-15] MEDS: ACCU-CHEK COMFORT CURVE STRIP VI SCH (06:29)
[2022-08-15] MEDS: InsuLIN REG 1unit/0.01ml Soln (100units/ml) SC SCH (06:35)
[2022-08-15 09:00] VITALS: BP 125/77
[2022-08-15] MEDS: cefTRIAXone 1GM/50ML D5W 50 ML IV SCH (09:55)
[2022-08-15] MEDS: methylPREDNISolone SOD SUCC 40 MG/ML VL IV SCH (09:55)
[2022-08-15] MEDS: DOCUSATE SOD 100 MG CAP PO SCH (09:55)
[2022-08-15] MEDS: APIXABAN 5 MG TAB PO SCH (09:55)
[2022-08-15] MEDS: PANTOPRAZOLE 40 MG TAB PO SCH (09:56)
[2022-08-15] MEDS: ASPirin 81 mg TAB PO SCH (09:57)
[2022-08-15] MEDS: AMIODARONE HCL 200 MG TAB PO SCH (09:57)
[2022-08-15] MEDS: METOPROLOL TARTRATE 25 MG TAB PO SCH (09:58)
[2022-08-15] MEDS: LISINOPRIL 10 MG TAB PO SCH (09:58)
[2022-08-15] MEDS: GENVOYA PO SCH (09:59)
[2022-08-15] MEDS ORDERED: AZITHROMYCIN 250 MG TAB PO SCH (10:00)
[2022-08-15] MEDS ORDERED: AMIO200T33 PO (11:44)
[2022-08-15] MEDS ORDERED: APIX5TAB PO (11:44)
[2022-08-15] MEDS ORDERED: AZIT500T66 PO (11:44)
== END 2022-08-15 11:41 | disposition home or self-care (01) | DRG 178 ==
LOC: ER 13:07 → TELE 14:49 → TELE-CENTR 08-11 09:23
PROVIDERS: ADMIT Hospitalist; ATTEND Family Medicine
DX: J15.6 Pneumonia due to other Gram-negative bacteria (principal); J44.0 Chronic obstructive pulmonary disease with (acute) lower respiratory infection; J44.1 Chronic obstructive pulmonary disease with (acute) exacerbation; I10 Essential (primary) hypertension; I48.91 Unspecified atrial fibrillation; F17.210 Nicotine dependence, cigarettes, uncomplicated; Z20.822 Contact with and (suspected) exposure to COVID-19; E11.9 Type 2 diabetes mellitus without complications; Z88.5 Allergy status to narcotic agent; Z79.01 Long term (current) use of anticoagulants; Z83.3 Family history of diabetes mellitus; Z86.16 Personal history of COVID-19
CPT/HCPCS: 36415; 71046; 74176; 80048; 80053; 81001; 82962; 84443; 84484; 85025; 87081; 87426; 93005; 93306; 94640; 96374; 99291; G0378; J0696; J1815

== ENCOUNTER → 2023-03-02 | Day surgery (SDC) | payer MEDICARE, MEDICAID ==
[2023-02-25 13:54] LABS: Basophils # (auto) 0.1 10 ^3/uL (0-0.2); Lymphocytes # (auto) 2.1 10 ^3/uL (0.4-5.4); Nucleated Red Blood Cells % 2.2 %
[2023-02-25 13:56] LABS: Basophils % (auto) 1.4 % (0.0-2.0); Eosinophils # (auto) 0.1 10 ^3/uL (0-0.8); Eosinophils % (auto) 0.9 % (0.0-7.0); Hematocrit 23.5 % (41.0-53.0); Lymphocytes % (auto) 29.8 % (10.0-50.0); Mean Corpuscular Hemoglobin 23.7 pg (28.0-32.0); Mean Corpuscular Hgb Conc. 29.3 g/dL (32.0-36.0); Monocytes % (auto) 13.7 % (0.0-12.0); Neutrophils # (auto) 3.8 10 ^3/uL (1.6-8.6); Neutrophils % (auto) 54.2 % (37.0-80.0)
[2023-02-25 14:00] LABS: Red Cell Distribution Width 30.1 % (11.8-14.3)
[2023-02-25 14:08] LABS: INR 1.04 (0.9-1.15); Partial Thromboplastin Time 23.9 SEC (24.5-34.5); Prothrombin Time 10.9 sec (9.3-11.8)
[2023-02-25 14:37] LABS: Hemoglobin 6.9 g/dL (13.5-17.5)
[2023-02-25 14:38] LABS: Platelet Estimate Increased
[2023-02-25 14:39] LABS: Anisocytosis Marked; Hypochromia Moderate
[2023-02-25 14:50] LABS: Alanine Aminotransferase 12 U/L (7-40); Albumin 4.1 g/dL (3.2-4.8); Alkaline Phosphatase 85 U/L (46-116); Anion Gap 9.7 (5-15); Aspartate Aminotransferase 9 U/L (13-40); BUN/Creatinine Ratio 15.6 (10.0-20.0); Blood Urea Nitrogen 14 mg/dL (9-23); Calcium 9.1 mg/dL (8.5-10.1); Carbon Dioxide 26.3 mmol/L (20-30); Chloride 106 mmol/L (98-107); Glucose 82 mg/dL (74-106); Potassium 3.6 mmol/L (3.5-5.1); Sodium 142 mmol/L (136-145)
[2023-02-25 14:51] LABS: Bilirubin, Total 0.4 mg/dL (0.2-1.0); Total Protein 6.8 g/dL (5.7-8.2)
[~2023-03-02] VITALS: Ht 180.3 cm; Wt 68.9 kg
[~2023-03-02] MED LIST changes: +ALBUAER3 IN; +AMIO200T33 PO; +APIX5TAB PO; +MELO-335 PO; -MELO1TAB56 PO; -METH4PAK PO; -METR500T PO; -SUCR1TAB22 PO
[2023-03-02 07:08] LABS: Urine WBC None Seen /hpf (0 - 3)
[2023-03-02 07:19] LABS: Urine Bacteria NONE SEEN /hpf (None Seen); Urine Blood Negative /uL (Negative); Urine Clarity Clear (Clear); Urine Protein, UAD Negative (Negative); Urine Specific Gravity 1.009 (1.001-1.035); Urine Urobilinogen Normal (Negative)
[2023-03-02 07:20] LABS: Urine Color Straw (Yellow)
== END | disposition home or self-care (01) ==
LOC: SUR 06:03
PROVIDERS: ATTEND Orthopaedic Surgery
DX: M47.12 Other spondylosis with myelopathy, cervical region (principal); Z53.8 Procedure and treatment not carried out for other reasons
CPT/HCPCS: 36415; 80053; 81001; 85025; 85610; 85730; 86850; 86900; 86901

== ENCOUNTER 2023-06-02 10:46 | Emergency (ER) | payer MEDICARE, MEDICAID ==
[~2023-06-02] VITALS: Ht 180.3 cm; Wt 66.7 kg
[2023-06-02 10:57] VITALS: BP 111/55; PULSE 50; RESP 18
[2023-06-02 13:11] VITALS: O2SAT 91
[2023-06-02] MEDS ORDERED: COLC1TAB3 PO (14:04)
[2023-06-02] MEDS ORDERED: NABU-72 PO (14:04)
[2023-06-02] MEDS ORDERED: DexAMETHasone SOD PHOS 10MG/1ML VIAL INJ IM ONE (14:15)
== END 2023-06-02 14:20 | disposition home or self-care (01) ==
LOC: ER 10:46
DX: M79.671 Pain in right foot (principal); F17.210 Nicotine dependence, cigarettes, uncomplicated; J44.9 Chronic obstructive pulmonary disease, unspecified; E11.9 Type 2 diabetes mellitus without complications; K21.9 Gastro-esophageal reflux disease without esophagitis; I10 Essential (primary) hypertension; Z88.6 Allergy status to analgesic agent
CPT/HCPCS: 73630; 96372; 99283; J1100

== ENCOUNTER → 2023-08-26 | Outpatient (CLI) | payer MEDICARE, MEDICAID ==
[~2023-08-26] MED LIST changes: +COLC1TAB3 PO; +NABU-72 PO
[2023-08-26 12:15] LABS: Basophils # (auto) 0.1 10 ^3/uL (0-0.2); Eosinophils # (auto) 0.1 10 ^3/uL (0-0.8); Mean Corpuscular Hemoglobin 19.2 pg (28.0-32.0); Monocytes # (auto) 0.6 10 ^3/uL (0-1.3); Nucleated Red Blood Cells % 0.2 %; White Blood Cell 5.4 10^3/uL (4.4-10.8)
[2023-08-26 12:17] LABS: Basophils % (auto) 1.4 % (0.0-2.0); Eosinophils % (auto) 2.3 % (0.0-7.0); Hematocrit 23.8 % (41.0-53.0); Lymphocytes # (auto) 2.4 10 ^3/uL (0.4-5.4); Mean Corpuscular Hgb Conc. 28.2 g/dL (32.0-36.0); Mean Corpuscular Volume 68.2 fL (80.0-100.0); Monocytes % (auto) 10.3 % (0.0-12.0); Neutrophils # (auto) 2.3 10 ^3/uL (1.6-8.6); Red Blood Cells 3.49 10^6/uL (4.5-5.90)
[2023-08-26 12:41] LABS: Hemoglobin 6.7 g/dL (13.5-17.5); Red Cell Distribution Width 21.3 % (11.8-14.3)
[2023-08-26 12:51] LABS: Alanine Aminotransferase 15 U/L (7-40); Albumin 4.4 g/dL (3.2-4.8); Alkaline Phosphatase 88 U/L (46-116); Anion Gap 10 (5-15); Aspartate Aminotransferase 50 U/L (13-40); BUN/Creatinine Ratio 7.4 (10.0-20.0); Blood Urea Nitrogen 10 mg/dL (9-23); Calcium 8.5 mg/dL (8.5-10.1); Carbon Dioxide 26 mmol/L (20-30); Chloride 103 mmol/L (98-107); Cholesterol 120 mg/dL (< 200); Glucose 109 mg/dL (74-106); HDL Cholesterol 73 mg/dL (40-59); LDL Cholesterol 31 mg/dL (< 100); Potassium 3.1 mmol/L (3.5-5.1); Sodium 139 mmol/L (136-145); Total Protein 7.7 g/dL (5.7-8.2); Triglycerides 57 mg/dL (< 150)
[2023-08-26 13:05] LABS: Platelet Estimate Adequate
[2023-08-26 13:06] LABS: Anisocytosis Slight
[2023-08-26 13:07] LABS: Hypochromia Marked
[2023-08-26 13:28] LABS: Hepatitis B Core Total AB Negative (Negative)
[2023-08-26 14:06] LABS: Hepatitis A Total Antibody Positive (Negative)
[2023-08-26 14:08] LABS: Hepatitis B Surface Antibody Positive (Negative); Hepatitis B Surface Antigen Negative (Negative); Hepatitis C Antibody Reactive (Negative)
[2023-08-26 14:22] LABS: Bilirubin, Total 0.5 mg/dL (0.2-1.0); Uric Acid 10.3 mg/dL (3.7-9.2)
[2023-08-27 08:06] LABS: PSA Free 2.07 ng/mL; Prostate Specific Antigen 9.3 ng/mL (0.0-4.0)
== END | disposition home or self-care (01) ==
LOC: LAB 11:49
DX: Z12.11 Encounter for screening for malignant neoplasm of colon (principal); M10.9 Gout, unspecified; I10 Essential (primary) hypertension
CPT/HCPCS: 36415; 80053; 80061; 84154; 84439; 84443; 84550; 85025; 86704; 86706; 86708; 86803; 87340

== ENCOUNTER 2023-12-06 10:32 | Inpatient (IN) | payer MEDICARE, MEDICAID ==
[~2023-12-06] VITALS: Ht 180.3 cm; Wt 69.3 kg
[~2023-12-06 10:32] MED LIST changes: +LOPE2CAP2 PO; -LOPE2TAB PO; -MELO-335 PO; +MELO15TA29 PO
[2023-12-06 11:47] LABS: Anion Gap 7 (5-15); Carbon Dioxide 26 mmol/L (20-30); Chloride 107 mmol/L (98-107); Potassium 3.7 mmol/L (3.5-5.1); Sodium 140 mmol/L (136-145)
[2023-12-06 11:48] LABS: Calcium 9.3 mg/dL (8.5-10.1)
[2023-12-06 11:51] LABS: Eosinophils # (auto) 0.1 10 ^3/uL (0-0.8); Hematocrit 23.8 % (41.0-53.0); Monocytes # (auto) 0.5 10 ^3/uL (0-1.3); Nucleated Red Blood Cells % 0.2 %; White Blood Cell 5.3 10^3/uL (4.4-10.8)
[2023-12-06 11:53] LABS: Basophils # (auto) 0.1 10 ^3/uL (0-0.2); Basophils % (auto) 2.5 % (0.0-2.0); Blood Urea Nitrogen 12 mg/dL (9-23); Eosinophils % (auto) 1.2 % (0.0-7.0); Glucose 102 mg/dL (74-106); Lymphocytes # (auto) 1.6 10 ^3/uL (0.4-5.4); Lymphocytes % (auto) 29.5 % (10.0-50.0); Mean Corpuscular Hemoglobin 19.4 pg (28.0-32.0); Mean Corpuscular Hgb Conc. 28.7 g/dL (32.0-36.0); Mean Corpuscular Volume 67.8 fL (80.0-100.0); Monocytes % (auto) 10.2 % (0.0-12.0); Neutrophils % (auto) 56.6 % (37.0-80.0); Red Blood Cells 3.51 10^6/uL (4.5-5.90)
[2023-12-06 12:05] LABS: Hemoglobin 6.8 g/dL (13.5-17.5)
[2023-12-06 12:10] LABS: INR 1.13 (0.9-1.15); Partial Thromboplastin Time 23.6 SEC (24.5-34.5); Prothrombin Time 11.9 sec (9.3-11.8)
[2023-12-06] MEDS ORDERED: HYDROcodone-ACET 5/325MG TAB PO PRN (13:45)
[2023-12-06] MEDS ORDERED: ONDANSETRON HCL 4 MG/2 ML VIAL IV PRN (13:45)
[2023-12-06] MEDS ORDERED: DOCUSATE SOD 100 MG CAP PO PRN (13:45)
[2023-12-06] MEDS ORDERED: NITROGLYCERIN 0.4 MG SL TAB SL PRN (13:45)
[2023-12-06] MEDS ORDERED: DEXTROSE (50%) 50ML SYRG IV PRN (13:45)
[2023-12-06] MEDS ORDERED: TAMS0.4C36 PO (13:48)
[2023-12-06] MEDS ORDERED: ROSU5TAB24 PO (13:48)
[2023-12-06] MEDS ORDERED: FAMO40TA7 PO (13:48)
[2023-12-06] MEDS ORDERED: PANT40T PO (13:48)
[2023-12-06] MEDS ORDERED: METO25TA93 PO (13:48)
[2023-12-06] MEDS ORDERED: AMLO1TAB21 PO (13:48)
[2023-12-06 14:38] VITALS: BP 140/75; PULSE 91; RESP 15; TEMP 97.9
[2023-12-06 14:54] LABS: % Iron Saturation 7.3 % (20-55)
[2023-12-06 14:59] VITALS: BP 142/79; PULSE 84; RESP 16; TEMP 97.8
[2023-12-06 15:12] VITALS: BP 144/78; PULSE 88; RESP 18; TEMP 97.8
[2023-12-06] MEDS: SODIUM CHLORIDE 0.9% 1,000 ML IV ONE (15:37)
[2023-12-06 16:00] VITALS: PULSE 94; RESP 16; O2SAT 97
[2023-12-06 16:44] LABS: Urine Bacteria None Seen /hpf (None Seen)
[2023-12-06] MEDS: diphenhdrAMINE HCL 25 MG CAP PO ONE (16:45)
[2023-12-06 17:00] LABS: Urine Blood Negative /uL (Negative); Urine Clarity Clear (Clear); Urine Color Yellow (Yellow); Urine Hyaline Cast MANY /lpf (0 - 2); Urine Mucus FEW (None Seen); Urine Protein, UAD 1+ (Negative); Urine Specific Gravity 1.019 (1.001-1.035); Urine Urobilinogen Normal (Negative); Urine WBC 1 /hpf (0 - 3)
[2023-12-06 17:48] VITALS: BP 150/85; PULSE 91; PULSE 93; RESP 16; TEMP 97.5
[2023-12-06] MEDS: TAMSULOSIN HYDROCHLORIDE 0.4 MG CAP PO SCH (18:00)
[2023-12-06] MEDS: ACCU-CHEK COMFORT CURVE STRIP VI SCH (18:42)
[2023-12-06] MEDS: InsuLIN REG 1unit/0.01ml Soln (100units/ml) SC SCH (18:42)
[2023-12-06 23:50] VITALS: PULSE 80; RESP 17; O2SAT 98
[2023-12-07] VITALS (11 sets, daily range): BP systolic 103–143; BP diastolic 65–89; PULSE 70–96; RESP 16–20; TEMP 97.6–98.7; O2SAT 95–98
[2023-12-07] MEDS: ATORVASTATIN 20 MG TAB PO SCH (00:27)
[2023-12-07 06:43] LABS: Basophils # (auto) 0.1 10 ^3/uL (0-0.2); Lymphocytes # (auto) 1.8 10 ^3/uL (0.4-5.4); Monocytes # (auto) 0.7 10 ^3/uL (0-1.3); Nucleated Red Blood Cells % 0.2 %; White Blood Cell 5.7 10^3/uL (4.4-10.8)
[2023-12-07 06:46] LABS: Basophils % (auto) 2.1 % (0.0-2.0); Eosinophils # (auto) 0.2 10 ^3/uL (0-0.8); Eosinophils % (auto) 2.7 % (0.0-7.0); Hematocrit 23.7 % (41.0-53.0); Lymphocytes % (auto) 31.5 % (10.0-50.0); Mean Corpuscular Hemoglobin 19.5 pg (28.0-32.0); Mean Corpuscular Hgb Conc. 28.8 g/dL (32.0-36.0); Mean Corpuscular Volume 67.8 fL (80.0-100.0); Monocytes % (auto) 11.6 % (0.0-12.0); Neutrophils % (auto) 52.1 % (37.0-80.0); Red Blood Cells 3.49 10^6/uL (4.5-5.90)
[2023-12-07 06:57] LABS: Alanine Aminotransferase 10 U/L (7-40); Albumin 3.9 g/dL (3.2-4.8); Alkaline Phosphatase 93 U/L (46-116); Anion Gap 11 (5-15); Aspartate Aminotransferase 18 U/L (13-40); BUN/Creatinine Ratio 10.3 (10.0-20.0); Bilirubin, Total 0.7 mg/dL (0.2-1.0); Blood Urea Nitrogen 9 mg/dL (9-23); Calcium 9.3 mg/dL (8.7-10.4); Carbon Dioxide 25 mmol/L (20-30); Chloride 105 mmol/L (98-107); Glucose 90 mg/dL (74-106); Potassium 3.2 mmol/L (3.5-5.1); Sodium 141 mmol/L (136-145); Total Protein 6.9 g/dL (5.7-8.2)
[2023-12-07 07:45] LABS: Hemoglobin 6.8 g/dL (13.5-17.5)
[2023-12-07] MEDS: MAGNESIUM OXIDE 400 MG TAB PO SCH (10:15)
[2023-12-07] MEDS: PANTOPRAZOLE 40 MG TAB PO SCH (10:16)
[2023-12-07] MEDS: amLODIPine BESYLATE 5 MG TAB PO SCH (10:17)
[2023-12-07] MEDS: FAMOTIDINE 20 MG TAB PO SCH (10:17)
[2023-12-07] MEDS: METOPROLOL SUCCINATE XL 50 MG TAB PO SCH (10:18)
[2023-12-07] MEDS: POTASSIUM CHL 20 Meq TABLET PO ONE (18:41)
[2023-12-07] MEDS: ACETAMINOPHEN 325 MG TAB PO PRN (21:13)
[2023-12-08 01:00] VITALS: BP 127/77; PULSE 79; RESP 20; TEMP 99.3; O2SAT 95
[2023-12-08 05:00] VITALS: BP 126/70; PULSE 82; RESP 20; TEMP 98.3; O2SAT 96
[2023-12-08 06:58] LABS: Basophils # (auto) 0.1 10 ^3/uL (0-0.2); Basophils % (auto) 2.5 % (0.0-2.0); Eosinophils # (auto) 0.1 10 ^3/uL (0-0.8); Eosinophils % (auto) 2.9 % (0.0-7.0); Hematocrit 28.2 % (41.0-53.0); Hemoglobin 8.6 g/dL (13.5-17.5); Lymphocytes # (auto) 1.8 10 ^3/uL (0.4-5.4); Lymphocytes % (auto) 41.7 % (10.0-50.0); Mean Corpuscular Hemoglobin 21.7 pg (28.0-32.0); Mean Corpuscular Hgb Conc. 30.4 g/dL (32.0-36.0); Mean Corpuscular Volume 71.4 fL (80.0-100.0); Monocytes # (auto) 0.6 10 ^3/uL (0-1.3); Monocytes % (auto) 13.8 % (0.0-12.0); Neutrophils # (auto) 1.7 10 ^3/uL (1.6-8.6); Neutrophils % (auto) 39.1 % (37.0-80.0); Nucleated Red Blood Cells % 0.1 %; Red Blood Cells 3.94 10^6/uL (4.5-5.90); White Blood Cell 4.4 10^3/uL (4.4-10.8)
[2023-12-08 07:00] LABS: Red Cell Distribution Width 25.5 % (11.8-14.3)
[2023-12-08 07:03] LABS: Anion Gap 4 (5-15); Carbon Dioxide 27 mmol/L (20-30); Chloride 105 mmol/L (98-107); Potassium 3.6 mmol/L (3.5-5.1); Sodium 136 mmol/L (136-145)
[2023-12-08 07:05] LABS: Calcium 9.5 mg/dL (8.5-10.1)
[2023-12-08 07:08] LABS: Folate (Folic Acid) 10.04 ng/mL (>5.38)
[2023-12-08 07:09] LABS: BUN/Creatinine Ratio 8.5 (10.0-20.0); Blood Urea Nitrogen 8 mg/dL (9-23); Glucose 106 mg/dL (74-106)
[2023-12-08 08:00] VITALS: PULSE 77; PULSE 81; RESP 18; O2SAT 95
[2023-12-08 08:58] VITALS: BP 136/83; PULSE 81; RESP 18; TEMP 98.1; O2SAT 95
[2023-12-08] MEDS: IRON SUCROSE COMPLEX 100 ML IV SCH (10:13)
[2023-12-08 13:00] VITALS: BP 128/85; PULSE 76; RESP 16; TEMP 98.2; O2SAT 98
[2023-12-08] MEDS ORDERED: FER325T PO (14:26)
[2023-12-08 14:57] VITALS: BP 128/85; PULSE 76; RESP 16; TEMP 98.2
== END 2023-12-08 17:50 | disposition home or self-care (01) | DRG 811 ==
LOC: ER 10:32 → TELE 13:46 → TELE-WESTW 22:58
PROVIDERS: ADMIT Nurse Practitioner Family; ATTEND Internal Medicine
PROC: 30233N1 Transfusion of Nonautologous Red Blood Cells into Peripheral Vein, Percutaneous Approach (ICD-10-PCS; principal; 2023-12-06)
DX: D50.9 Iron deficiency anemia, unspecified (principal); N17.0 Acute kidney failure with tubular necrosis; E87.6 Hypokalemia; I48.91 Unspecified atrial fibrillation; I10 Essential (primary) hypertension; J44.9 Chronic obstructive pulmonary disease, unspecified; F17.210 Nicotine dependence, cigarettes, uncomplicated; E78.5 Hyperlipidemia, unspecified; K21.9 Gastro-esophageal reflux disease without esophagitis; E11.41 Type 2 diabetes mellitus with diabetic mononeuropathy; M10.9 Gout, unspecified; Z96.651 Presence of right artificial knee joint; N40.0 Benign prostatic hyperplasia without lower urinary tract symptoms; Z88.5 Allergy status to narcotic agent; Z83.3 Family history of diabetes mellitus; D63.8 Anemia in other chronic diseases classified elsewhere
CPT/HCPCS: 36415; 80048; 80053; 81001; 82607; 82728; 82746; 82962; 83540; 83550; 83615; 85025; 85045; 85610; 85730; 86850; 86900; 86901; 86920; G0378; J1756

== ENCOUNTER → 2024-01-12 | Outpatient (CLI) | payer MEDICARE, MEDICAID ==
[~2024-01-12] MED LIST changes: +AMLO1TAB21 PO; +FAMO40TA7 PO; +FER325T PO; +METO25TA93 PO; +PANT40T PO; +ROSU5TAB24 PO; +TAMS0.4C36 PO
[2024-01-12 11:42] LABS: Basophils # (auto) 0 10 ^3/uL (0-0.2); Basophils % (auto) 0.7 % (0.0-2.0); Eosinophils # (auto) 0.3 10 ^3/uL (0-0.8); Eosinophils % (auto) 5.3 % (0.0-7.0); Hematocrit 37.8 % (41.0-53.0); Hemoglobin 12.1 g/dL (13.5-17.5); Lymphocytes # (auto) 1.9 10 ^3/uL (0.4-5.4); Lymphocytes % (auto) 32.4 % (10.0-50.0); Mean Corpuscular Hemoglobin 27.3 pg (28.0-32.0); Mean Corpuscular Hgb Conc. 32.2 g/dL (32.0-36.0); Mean Corpuscular Volume 84.9 fL (80.0-100.0); Monocytes # (auto) 0.5 10 ^3/uL (0-1.3); Monocytes % (auto) 9.2 % (0.0-12.0); Neutrophils # (auto) 3.1 10 ^3/uL (1.6-8.6); Neutrophils % (auto) 52.4 % (37.0-80.0); Red Blood Cells 4.45 10^6/uL (4.5-5.90); White Blood Cell 5.8 10^3/uL (4.4-10.8)
[2024-01-12 11:50] LABS: Red Cell Distribution Width 31.9 % (11.8-14.3)
[2024-01-12 12:02] LABS: Alanine Aminotransferase 25 U/L (7-40); Albumin 4.3 g/dL (3.2-4.8); Alkaline Phosphatase 118 U/L (46-116); Anion Gap 11 (5-15); Aspartate Aminotransferase 46 U/L (13-40); BUN/Creatinine Ratio 8.2 (10.0-20.0); Bilirubin, Total 0.6 mg/dL (0.2-1.0); Blood Urea Nitrogen 11 mg/dL (9-23); Calcium 9.5 mg/dL (8.7-10.4); Carbon Dioxide 25 mmol/L (20-30); Chloride 104 mmol/L (98-107); Cholesterol 126 mg/dL (< 200); Glucose 122 mg/dL (74-106); Potassium 3.8 mmol/L (3.5-5.1); Sodium 140 mmol/L (136-145); Total Protein 7.2 g/dL (5.7-8.2); Triglycerides 136 mg/dL (< 150)
[2024-01-13 07:07] LABS: Baso (Absolute) 0.1 x10E3/uL (0.0-0.2); Basos 2 % (Not Estab.); Eos 5 % (Not Estab.); Eos (Absolute) 0.3 x10E3/uL (0.0-0.4); Hematocrit 39.8 % (37.5-51.0); Hematology Comments: Note: (.); Hemoglobin 12.6 g/dL (13.0-17.7); Lymphs 35 % (Not Estab.); Lymphs (Absolute) 1.8 x10E3/uL (0.7-3.1); MCH 27.2 pg (26.6-33.0); MCHC 31.7 g/dL (31.5-35.7); MCV 86 fL (79-97); Monocytes 7 % (Not Estab.); Monocytes (Absolute) 0.4 x10E3/uL (0.1-0.9); Neutrophils 51 % (Not Estab.); Neutrophils (Absolute) 2.7 x10E3/uL (1.4-7.0); Platelets 146 x10E3/uL (150-450); RBC 4.63 x10E6/uL (4.14-5.80); RDW 27.4 % (11.6-15.4); RPR Non Reactive (Non Reactive); WBC 5.2 x10E3/uL (3.4-10.8)
[2024-01-13 09:07] LABS: % CD 8 Pos Lymph 39.1 % (12.0-35.5); Absolute CD 4 Helper 594 /uL (359-1519); CD4/CD8 Ratio 0.84 (0.92-3.72)
[2024-01-13 09:24] LABS: Hepatitis B Surface Antibody Positive (Negative)
[2024-01-13 10:04] LABS: Hepatitis A Total Antibody Positive (Negative)
[2024-01-14 11:07] LABS: Chlamydia Trachomatis, NAA Negative (Negative); Neisseria gonorrhoeae, NAA Negative (Negative)
[2024-01-14 12:07] LABS: QuantiFERON-TB Gold Plus Negative (Negative)
== END | disposition home or self-care (01) ==
LOC: LAB 10:27
DX: Z72.51 High risk heterosexual behavior (principal); B20 Human immunodeficiency virus [HIV] disease; Z79.899 Other long term (current) drug therapy
CPT/HCPCS: 36415; 80053; 82465; 84478; 85025; 86360; 86592; 86703; 86706; 86708; 86803; 87389

== ENCOUNTER → 2024-01-19 | Outpatient (CLI) | payer MEDICARE, MEDICAID ==
[2024-01-19 13:55] LABS: Basophils # (auto) 0.1 10 ^3/uL (0-0.2); Basophils % (auto) 1.7 % (0.0-2.0); Eosinophils # (auto) 0.2 10 ^3/uL (0-0.8); Eosinophils % (auto) 3.1 % (0.0-7.0); Hematocrit 40.1 % (41.0-53.0); Hemoglobin 12.8 g/dL (13.5-17.5); Lymphocytes # (auto) 2.1 10 ^3/uL (0.4-5.4); Lymphocytes % (auto) 33.3 % (10.0-50.0); Mean Corpuscular Hemoglobin 27.9 pg (28.0-32.0); Mean Corpuscular Hgb Conc. 31.9 g/dL (32.0-36.0); Mean Corpuscular Volume 87.5 fL (80.0-100.0); Monocytes # (auto) 0.7 10 ^3/uL (0-1.3); Monocytes % (auto) 10.2 % (0.0-12.0); Neutrophils # (auto) 3.3 10 ^3/uL (1.6-8.6); Neutrophils % (auto) 51.7 % (37.0-80.0); Nucleated Red Blood Cells % 0.2 %; Red Blood Cells 4.58 10^6/uL (4.5-5.90); White Blood Cell 6.4 10^3/uL (4.4-10.8)
[2024-01-19 14:07] LABS: Red Cell Distribution Width 30.9 % (11.8-14.3)
[2024-01-19 14:31] LABS: % Iron Saturation 40.5 % (20-55)
[2024-01-19 14:35] LABS: Ferritin 150.6 ng/mL (22-322); Folate (Folic Acid) 8.98 ng/mL (>5.38)
[2024-01-19 14:37] LABS: Creatinine, Urine 461.31 mg/dL (30.0-125.0)
[2024-01-19 16:15] LABS: Anisocytosis Moderate; Platelet Estimate Adequate
[2024-01-20 08:06] LABS: Rheumatoid Arthritis Factor 31.5 IU/mL (<14.0)
[2024-01-20 13:08] LABS: Anti-Nuclear Antibody Direct Negative (Negative)
== END | disposition home or self-care (01) ==
LOC: LAB 13:27
DX: D50.9 Iron deficiency anemia, unspecified (principal); E10.9 Type 1 diabetes mellitus without complications; M25.50 Pain in unspecified joint
CPT/HCPCS: 36415; 82043; 82570; 82607; 82728; 82746; 83036; 83540; 83550; 84550; 85025; 86038; 86431